=== PATIENT | male | born 1985 | race Caucasian/White ===

== ENCOUNTER 2020-06-13 14:20 | Emergency (ER) | payer OTHER ==
[2020-06-13 14:32] VITALS: BP 121/80; PULSE 74; RESP 16; TEMP 98.4
--- NOTE | 2020-06-13 14:42 | ED ---
Recheck HPI - General Chief Complaint: Recheck/Abnormal Lab/Rx Stated Complaint: COVID test Time Seen by Provider: 06/13/20 14:35 Source: patient Mode of arrival: ambulatory Limitations: no limitations - History of Present Illness Initial Comments: 34-year-old male presenting today for chief complaint of dry cough exposure to cold. Patient states he's had a dry cough for the past 2 days. Patient denies a chest pain shortness of breath nausea vomiting fevers body aches or additional complaints. Patient appears well nontoxic distress. No further complaints vital signs within physical limits he does not endorse any past medical history. - Related Data Allergies Allergy/AdvReac Type Severity Reaction Status Date / Time No Known Allergies Allergy Verified 06/13/20 14:32 Review of Systems ROS Statement: Those systems with pertinent positive or pertinent negative responses have been documented in the HPI. ROS Other: All systems not noted in ROS Statement are negative. Past Medical History Past Medical History: No Reported History History of Any Multi-Drug Resistant Organisms: None Reported Past Surgical History: No Surgical Hx Reported Past Psychological History: No Psychological Hx Reported Smoking Status: Never smoker Past Alcohol Use History: Occasional Past Drug Use History: None Reported General Exam - General Exam Comments Initial Comments: General: The patient is awake and alert, in no distress, and does not appear acutely ill. Eye: Pupils are equal, round and reactive to light, extra-ocular movements are intact. No nystagmus. There is normal conjunctiva bilaterally. No signs of icterus. Ears, nose, mouth and throat: There are moist mucous membranes and no oral lesions. Oropharynx nonerythematous uvula midline. Neck: The neck is supple, there is no tenderness or JVD. Cardiovascular: There is a regular rate and rhythm. No murmur, rub or gallop is appreciated. Respiratory: Lungs are clear to auscultation, respirations are non-labored, breath sounds are equal. No wheezes, stridor, rales, or rhonchi. Musculoskeletal: Normal ROM, no tenderness. Strength 5/5. Sensation intact. Pulses equal bilaterally 2+. Neurological: A&O x 3. CN II-XII intact, There are no obvious motor or sensory deficits. Coordination appears grossly intact. Speech is normal. Skin: Skin is warm and dry and no rashes or lesions are noted. Psychiatric: Cooperative, appropriate mood & affect, normal judgment. Limitations: no limitations Course Vital Signs 06/13/20 14:28 Temperature 98.4 F Pulse Rate 74 Respiratory 16 Rate Blood Pressure 121/80 O2 Sat by Pulse 98 Oximetry Medical Decision Making - Medical Decision Making Nontoxic-appearing 34-year-old male presenting for cc of cough, covid exposure. lungs clear. oxygenating well on RA, no dyspnea or chest pain. Patient tested. will be called with results. pt discharged with symptomatic treatment instruction, quarantine protocol discussed as well as return parameters. Disposition Clinical Impression: Cough, Exposure to COVID-19 virus Disposition: HOME SELF-CARE Condition: Good Instructions (If sedation given, give patient instructions): Upper Respiratory Infection (ED) Additional Instructions: Please use medication as discussed. Please follow-up with family doctor in the next 2 days, quarantine for the next 10-14 days.. Please return to emergency room if the symptoms increase or worsen or for any other concerns. Is patient prescribed a controlled substance at d/c from ED?: No Referrals: [facility],Clinic [Primary Care Provider] - 1-2 days Time of Disposition: 14:42
== END 2020-06-13 14:58 | disposition home or self-care (01) ==
LOC: EC 14:20
DX: R05 Cough (principal); Z20.822 Contact with and (suspected) exposure to COVID-19
CPT/HCPCS: 87635; 99283

== ENCOUNTER 2020-07-28 13:58 | Emergency (ER) | payer OTHER ==
[2020-07-28 14:26] VITALS: BP 133/54; PULSE 96; TEMP 98.4
[2020-07-28] MEDS ORDERED: guaiFENesin-DM 600/30MG 1 EACH TAB.ER.12H PO STA (14:33)
[2020-07-28 14:46] VITALS: RESP 16
--- NOTE | 2020-07-28 15:00 | XR ---
EXAMINATION TYPE: XR chest 1V DATE OF EXAM: 07/28/2020 COMPARISON: NONE HISTORY: Cough TECHNIQUE: Single view FINDINGS: Heart and mediastinum are normal. Lungs are clear. Diaphragm is normal. Bony thorax appears normal. IMPRESSION: Normal chest. Normal heart.
--- NOTE | 2020-07-28 15:42 | ED ---
URI HPI - General Chief Complaint: Upper Respiratory Infection Stated Complaint: Covid Test Time Seen by Provider: 07/28/20 14:26 Source: patient Mode of arrival: ambulatory Limitations: no limitations - History of Present Illness Initial Comments: 34-year-old male patient presents to the emergency department today for evaluation of dry cough for the last 2-3 days. Patient states that his been more persistent. He is concerned he may have COVID-19. He denies any fever or chills. Denies nasal congestion or drainage. Denies any shortness of breath or chest pain. Denies rash. - Related Data Previous Rx's Medication Instructions Recorded Albuterol Sulfate [Proair Hfa] 1 - 2 puff INHALATION Q6HR PRN #1 07/28/20 inhaler guaiFENesin-DM 600/30MG [Mucinex 2 each PO Q12HR PRN #20 tab.er.12h 07/28/20 Dm] Allergies Allergy/AdvReac Type Severity Reaction Status Date / Time No Known Allergies Allergy Verified 07/28/20 14:22 Review of Systems ROS Statement: Those systems with pertinent positive or pertinent negative responses have been documented in the HPI. ROS Other: All systems not noted in ROS Statement are negative. Past Medical History Past Medical History: No Reported History Additional Past Medical History / Comment(s): back pain History of Any Multi-Drug Resistant Organisms: None Reported Past Surgical History: No Surgical Hx Reported Past Psychological History: No Psychological Hx Reported Smoking Status: Former smoker Past Alcohol Use History: Occasional Past Drug Use History: None Reported General Exam Limitations: no limitations General appearance: alert, in no apparent distress, other (This is a well- developed, well-nourished adult male patient in no acute distress. Vital signs upon presentation are temperature 98.4F, pulse 96, respirations 18, blood pressure 133/54, pulse ox 97% on room air.) ENT exam: Present: normal exam, normal oropharynx Respiratory exam: Present: normal lung sounds bilaterally. Absent: respiratory distress, wheezes, rales, rhonchi, stridor Cardiovascular Exam: Present: regular rate, normal rhythm, normal heart sounds. Absent: systolic murmur, diastolic murmur, rubs, gallop, clicks Neurological exam: Present: alert, oriented X3, CN II-XII intact Psychiatric exam: Present: normal affect, normal mood Skin exam: Present: warm, dry, intact, normal color. Absent: rash Course Vital Signs 07/28/20 07/28/20 07/28/20 14:22 14:45 15:28 Temperature 98.4 F 98.4 F Pulse Rate 96 96 Respiratory 18 16 16 Rate Blood Pressure 133/54 133/54 O2 Sat by Pulse 97 97 Oximetry Medical Decision Making - Medical Decision Making 34-year-old male patient presented to the emergency department today for evaluation of dry cough for the last 3 days. Physical examination is unremarkable. Lungs are clear to auscultation with good air movement. Vital signs are within normal ranges, normal oxygen saturation. He is afebrile. Chest x-ray is negative. He tested negative for COVID-19. He is given prescription for Mucinex and Pro Air. Instructed to follow-up with his primary care physician for recheck in 1-2 days. Return parameters were discussed in detail. He verbalizes understanding and agrees with this plan. Case discussed with my attending Dr. Perez. - Lab Data Lab Results 07/28/20 Range/Units 14:43 Coronavirus (PCR) Not Detected (Not Detectd) - Radiology Data Radiology results: report reviewed, image reviewed One view x-ray of the chest is obtained. Report was reviewed in its entirety. Impression by Dr. Barone shows normal chest. Normal heart. Disposition Clinical Impression: Cough Disposition: HOME SELF-CARE Condition: Good Instructions (If sedation given, give patient instructions): Upper Respiratory Infection (ED), Acute Cough (ED) Additional Instructions: Take medications as directed. Follow-up with the primary care physician for recheck in 1-2 days. Return to the emergency department for any new, worsening, or concerning symptoms. Prescriptions: guaiFENesin-DM 600/30MG [Mucinex Dm] 2 each PO Q12HR PRN #20 tab.er.12h PRN Reason: Cough Albuterol Sulfate [Proair Hfa] 1 - 2 puff INHALATION Q6HR PRN #1 inhaler PRN Reason: Shortness Of Breath Is patient prescribed a controlled substance at d/c from ED?: No Referrals: [facility],Clinic [Primary Care Provider] - 1-2 days Time of Disposition: 15:41
== END 2020-07-28 15:45 | disposition home or self-care (01) ==
LOC: EC 13:58
DX: R05 Cough (principal); Z87.891 Personal history of nicotine dependence
CPT/HCPCS: 71045; 87635; 99283

== ENCOUNTER 2020-09-15 11:11 | Emergency (ER) | payer OTHER ==
[2020-09-15 11:21] VITALS: TEMP 97.9
[2020-09-15] MEDS ORDERED: KETOROLAC 15 MG/ML 1 ML VIAL IVP STA (11:27)
[2020-09-15] MEDS ORDERED: SODIUM CHLORIDE 0.9% 1,000 ML IV STA (11:27)
--- NOTE | 2020-09-15 11:35 | ED ---
Abdominal Pain HPI - General Chief Complaint: Abdominal Pain Stated Complaint: abd pain Time Seen by Provider: 09/15/20 11:19 Source: patient Mode of arrival: wheelchair Limitations: no limitations - History of Present Illness Initial Comments: Patient is a 34-year-old male presenting to the emergency Department with complaints of left-sided abdominal pain that started suddenly about 2 hours prior to arrival. He describes the pain as very sharp, severe radiating from the left low back towards the left side of the abdomen, down towards the left groin. He denies history of kidney stones. He denies any nausea or vomiting, no fever or chills. He denies any history of abdominal surgeries. Denies any chest pain or shortness of breath. He currently rates the pain 11/24. He has no further complaints. His vital signs are stable upon arrival. - Related Data Previous Rx's Medication Instructions Recorded Albuterol Sulfate [Proair Hfa] 1 - 2 puff INHALATION Q6HR PRN #1 07/28/20 inhaler guaiFENesin-DM 600/30MG [Mucinex 2 each PO Q12HR PRN #20 tab.er.12h 07/28/20 Dm] Ketorolac [Toradol] 10 mg PO Q8HR #10 tab 09/15/20 Ondansetron Odt [Zofran Odt] 4 mg PO Q8HR PRN #10 tab 09/15/20 Tamsulosin [Flomax] 0.4 mg PO DAILY #7 cap 09/15/20 Allergies Allergy/AdvReac Type Severity Reaction Status Date / Time No Known Allergies Allergy Verified 09/15/20 11:21 Review of Systems ROS Statement: Those systems with pertinent positive or pertinent negative responses have been documented in the HPI. ROS Other: All systems not noted in ROS Statement are negative. Past Medical History Past Medical History: No Reported History Additional Past Medical History / Comment(s): back pain, IBS History of Any Multi-Drug Resistant Organisms: None Reported Past Surgical History: No Surgical Hx Reported Past Psychological History: No Psychological Hx Reported Smoking Status: Former smoker Past Alcohol Use History: Occasional Past Drug Use History: Marijuana General Exam - General Exam Comments Initial Comments: GENERAL: Patient is well-developed and well-nourished. Patient is nontoxic and in moderate distress, if reticulocyte. HEAD: Atraumatic, normocephalic. EYES: Pupils equal round and reactive to light, extraocular movements intact, sclera anicteric, conjunctiva are normal. Eyelids were unremarkable. ENT: TMs normal, nares patent, oropharynx clear without exudates. Moist mucous membranes. NECK: Normal range of motion, supple without lymphadenopathy or JVD. LUNGS: Unlabored respirations. Breath sounds clear to auscultation bilaterally and equal. No wheezes rales or rhonchi. HEART: Regular rate and rhythm without murmurs, rubs or gallops. ABDOMEN: Soft, tender to palpation in the left side of the abdomen., normoactive bowel sounds. No guarding, no rebound. No masses appreciated. : Deferred MUSCULOSKELETAL: Normal extremities with adequate strength and normal range of motion, no pitting or edema. No clubbing or cyanosis. NEUROLOGICAL: Patient is alert and oriented x 3. Motor and sensory are also intact. Cranial nerves II through XII grossly intact. Symmetrical smile. Normal speech, normal gait. PSYCH: Normal mood, normal affect. SKIN: Warm, Dry, normal turgor, no rashes or lesions noted. Limitations: no limitations Course Vital Signs 09/15/20 09/15/20 11:19 12:41 Temperature 97.9 F Pulse Rate 76 74 Respiratory 18 16 Rate Blood Pressure 156/79 101/76 O2 Sat by Pulse 98 99 Oximetry Medical Decision Making - Medical Decision Making Patient is a 34-year-old male here for left flank pain 2 hours. His vitals are stable, no history of kidney stones. Labs are stable, normal white count. Urine shows large amount of blood. CT of the abdomen shows 3 small nonobstructing left renal calcifications. No hydronephrosis. Patient was given fluids and some Toradol, reports improvement of symptoms. I discussed with patient this is most likely kidney stones, renal colic. I will give him urology follow-up. I will send him home with some Flomax, Toradol, Zofran for any additional symptoms. He is stable for discharge. He is in agreement with this plan of care. Return parameters were discussed with the patient and he verbalized understanding. Case discussed Dr. Albert. - Lab Data Result diagrams: 09/15/20 11:33 09/15/20 11:33 Lab Results 09/15/20 09/15/20 09/15/20 Range/Units 11:33 11:33 11:33 WBC 9.7 (3.8-10.6) k/uL RBC 5.07 (4.30-5.90) m/uL Hgb 16.2 (13.0-17.5) gm/dL Hct 46.6 (39.0-53.0) % MCV 91.8 (80.0-100.0) fL MCH 31.9 (25.0-35.0) pg MCHC 34.8 (31.0-37.0) g/dL RDW 12.0 (11.5-15.5) % Plt Count 193 (150-450) k/uL MPV 8.1 Neutrophils % 60 % Lymphocytes % 30 % Monocytes % 5 % Eosinophils % 3 % Basophils % 1 % Neutrophils # 5.8 (1.3-7.7) k/uL Lymphocytes # 3.0 (1.0-4.8) k/uL Monocytes # 0.5 (0-1.0) k/uL Eosinophils # 0.3 (0-0.7) k/uL Basophils # 0.1 (0-0.2) k/uL Sodium 138 (137-145) mmol/L Potassium 4.4 (3.5-5.1) mmol/L Chloride 107 (98-107) mmol/L Carbon Dioxide 23 (22-30) mmol/L Anion Gap 8 mmol/L BUN 11 (9-20) mg/dL Creatinine 0.84 (0.66-1.25) mg/dL Est GFR (CKD-EPI)AfAm >90 (>60 ml/min/1.73 sqM) Est GFR (CKD-EPI)NonAf >90 (>60 ml/min/1.73 sqM) Glucose 104 H (74-99) mg/dL Calcium 9.5 (8.4-10.2) mg/dL Total Bilirubin 1.6 H (0.2-1.3) mg/dL AST 30 (17-59) U/L ALT 33 (4-49) U/L Alkaline Phosphatase 79 (38-126) U/L Total Protein 7.7 (6.3-8.2) g/dL Albumin 4.5 (3.5-5.0) g/dL Lipase 48 (23-300) U/L Urine Color Yellow Urine Appearance Clear (Clear) Urine pH 5.5 (5.0-8.0) Ur Specific [place] 1.020 (1.001-1.035) Urine Protein Negative (Negative) Urine Glucose (UA) Negative (Negative) Urine Ketones Negative (Negative) Urine Blood Large H (Negative) Urine Nitrite Negative (Negative) Urine Bilirubin Negative (Negative) Urine Urobilinogen <2.0 (<2.0) mg/dL Ur Leukocyte Esterase Negative (Negative) Urine RBC 83 H (0-5) /hpf Urine WBC 2 (0-5) /hpf Urine Bacteria Rare H (None) /hpf Urine Mucus Occasional H (None) /hpf Disposition Clinical Impression: Left flank pain, Renal colic on left side Disposition: HOME SELF-CARE Condition: Stable Instructions (If sedation given, give patient instructions): Kidney Stones (ED) Additional Instructions: Please return to the Emergency Department if symptoms worsen or any other concerns. May take Flomax, Toradol, Zofran for symptoms. Follow up with urology as discussed. Prescriptions: Tamsulosin [Flomax] 0.4 mg PO DAILY #7 cap Ketorolac [Toradol] 10 mg PO Q8HR #10 tab Ondansetron Odt [Zofran Odt] 4 mg PO Q8HR PRN #10 tab PRN Reason: Nausea Is patient prescribed a controlled substance at d/c from ED?: No Referrals: [facility],Clinic [Primary Care Provider] - 1-2 days Time of Disposition: 13:13
[2020-09-15 11:39] LABS: Basophils # (A) 0.1 k/uL (0-0.2); Basophils % (A) 1 %; Eosinophils # (A) 0.3 k/uL (0-0.7); Eosinophils % (A) 3 %; HCT 46.6 % (39.0-53.0); HGB 16.2 gm/dL (13.0-17.5); Lymphocytes % (A) 30 %; MCH 31.9 pg (25.0-35.0); MCHC 34.8 g/dL (31.0-37.0); MCV 91.8 fL (80.0-100.0); Mean Platelet Volume 8.1; Monocytes # (A) 0.5 k/uL (0-1.0); Monocytes % (A) 5 %; Neutrophils # (A) 5.8 k/uL (1.3-7.7); Neutrophils % (A) 60 %; Platelet Count 193 k/uL (150-450); RBC 5.07 m/uL (4.30-5.90); WBC 9.7 k/uL (3.8-10.6)
[2020-09-15 11:48] LABS: ALT 33 U/L (4-49); AST 30 U/L (17-59); African American GFR (CKD) >90 (>60 ml/min/1.73 sqM); Albumin 4.5 g/dL (3.5-5.0); Alkaline Phosphatase 79 U/L (38-126); Anion Gap 8 mmol/L; Blood Urea Nitrogen 11 mg/dL (9-20); Calcium 9.5 mg/dL (8.4-10.2); Carbon Dioxide 23 mmol/L (22-30); Chloride 107 mmol/L (98-107); Glucose 104 mg/dL (74-99); Lipase 48 U/L (23-300); Non-African American GFR(CKD) >90 (>60 ml/min/1.73 sqM); Sodium 138 mmol/L (137-145); Total Bilirubin 1.6 mg/dL (0.2-1.3); Total Protein 7.7 g/dL (6.3-8.2)
[2020-09-15 11:50] LABS: Potassium 4.4 mmol/L (3.5-5.1)
[2020-09-15 12:42] VITALS: BP 101/76; PULSE 74; RESP 16
--- NOTE | 2020-09-15 12:54 | CT ---
EXAMINATION TYPE: CT abdomen pelvis wo con DATE OF EXAM: 09/15/2020 COMPARISON: None HISTORY: Lt flank pain CT DLP: 657.8 mGycm Automated exposure control for dose reduction was used. TECHNIQUE: Helical acquisition of images was performed from the lung bases through the pelvis. FINDINGS: The lung bases are clear. The gallbladder is normal and there is no biliary ductal dilatation. Grossly the liver, pancreas, spleen and adrenal glands are normal without evidence of organomegaly. There are 3 nonobstructing left renal calcifications the largest of which measures approximately 3.5 mm. There are no ureteral calcifications or bladder calcifications. There are no calcifications in th e right kidney. There is no retroperitoneal adenopathy or hemorrhage in the caliber of the abdominal aorta is normal. The bowel loops are unremarkable without evidence of obstruction. No inflammatory changes are identif ied in the mesentery. There is no free intraperitoneal air or fluid. There is no pelvic mass, free fluid, abscess or adenopathy. The osseous structures and soft tissues are unremarkable. IMPRESSION: 3 small nonobstructing left renal calcifications with no other significant abnormality seen. There is no hydronephrosis or ureteral calcification.
[2020-09-15 13:11] LABS: Appearance,Urine Clear (Clear); Bacteria,Urine Rare /hpf; Bilirubin,Urine Negative (Negative); Blood,Urine Large (Negative); Color,Urine Yellow; Glucose,Urine (UA) Negative (Negative); Ketones,Urine Negative (Negative); Leukocyte Esterase,Urine Negative (Negative); Mucus,Urine Occasional /hpf; Nitrite,Urine Negative (Negative); PH, Urine 5.5 (5.0-8.0); Protein,Urine Negative (Negative); RBC,Urine 83 /hpf (0-5); Urobilinogen,Urine <2.0 mg/dL (<2.0); WBC,Urine 2 /hpf (0-5)
== END 2020-09-15 13:31 | disposition home or self-care (01) ==
LOC: EC 11:11
DX: N23 Unspecified renal colic (principal); E11.9 Type 2 diabetes mellitus without complications; F12.90 Cannabis use, unspecified, uncomplicated; Z87.891 Personal history of nicotine dependence; Z79.84 Long term (current) use of oral hypoglycemic drugs
CPT/HCPCS: 36415; 80053; 83690; 85025; 81001; 74176; 99284; 96374; J1885

== ENCOUNTER 2020-10-19 13:22 | Emergency (ER) | payer OTHER ==
[2020-10-19 14:17] VITALS: TEMP 97.9
--- NOTE | 2020-10-19 15:09 | ED ---
URI HPI - General Chief Complaint: Upper Respiratory Infection Stated Complaint: sore throat and congestion Time Seen by Provider: 10/19/20 14:23 Source: patient Mode of arrival: ambulatory Limitations: no limitations - History of Present Illness Initial Comments: Patient is a 35-year-old male presenting to the emergency Department with complaints of a mild cough, congestion and sore throat that started yesterday. He states he has a to go to tomorrow and really wants to make sure he is not contagious. He denies any fevers or chills, no chest pain or shortness of breath. He denies history of asthma or COPD. He denies any nausea or vomiting or diarrhea. He denies any pain anywhere. He has no further complaints at this time. Upon arrival to the ER, his vitals are stable. - Related Data Home Medications Medication Instructions Recorded Confirmed No Known Home Medications 10/19/20 10/19/20 Allergies Allergy/AdvReac Type Severity Reaction Status Date / Time No Known Allergies Allergy Verified 10/19/20 16:14 Review of Systems ROS Statement: Those systems with pertinent positive or pertinent negative responses have been documented in the HPI. ROS Other: All systems not noted in ROS Statement are negative. Past Medical History Past Medical History: No Reported History Additional Past Medical History / Comment(s): back pain, IBS History of Any Multi-Drug Resistant Organisms: None Reported Past Surgical History: No Surgical Hx Reported Past Psychological History: No Psychological Hx Reported Smoking Status: Former smoker Past Alcohol Use History: Occasional Past Drug Use History: Marijuana General Exam - General Exam Comments Initial Comments: GENERAL: Patient is well-developed and well-nourished. Patient is nontoxic and in no acute distress. HEAD: Atraumatic, normocephalic. EYES: Pupils equal round and reactive to light, extraocular movements intact, sclera anicteric, conjunctiva are normal. Eyelids were unremarkable. ENT: TMs normal, nares patent, oropharynx clear without exudates. Moist mucous membranes. NECK: Normal range of motion, supple without lymphadenopathy or JVD. LUNGS: Unlabored respirations. Breath sounds clear to auscultation bilaterally and equal. No wheezes rales or rhonchi. HEART: Regular rate and rhythm without murmurs, rubs or gallops. ABDOMEN: Soft, nontender, normoactive bowel sounds. No guarding, no rebound. No masses appreciated. : Deferred MUSCULOSKELETAL: Normal extremities with adequate strength and normal range of motion, no pitting or edema. No clubbing or cyanosis. NEUROLOGICAL: Patient is alert and oriented x 3. Motor and sensory are also intact. Cranial nerves II through XII grossly intact. Symmetrical smile. Normal speech, normal gait. PSYCH: Normal mood, normal affect. SKIN: Warm, Dry, normal turgor, no rashes or lesions noted. Limitations: no limitations Course Vital Signs 10/19/20 10/19/20 14:15 14:16 Temperature 97.9 F Pulse Rate 90 80 Respiratory 20 18 Rate Blood Pressure 107/78 130/85 O2 Sat by Pulse 94 L 98 Oximetry Medical Decision Making - Medical Decision Making Patient is a 35-year-old male here with complaints of a cough, congestion and a sore throat that started yesterday. His vital signs are stable, the exam is unremarkable. Covid test is negative, chest x-ray is unremarkable. I discussed the patient is most likely viral in nature. He is stable for discharge. In follow-up this PCP. He is in agreement this plan of care. Case discussed with Dr. Albert. - Lab Data Lab Results 10/19/20 Range/Units 14:55 Coronavirus (PCR) Not Detected (Not Detectd) Disposition Clinical Impression: Viral upper respiratory illness Disposition: HOME SELF-CARE Condition: Stable Instructions (If sedation given, give patient instructions): Upper Respiratory Infection (ED) Additional Instructions: Please return to the Emergency Department if symptoms worsen or any other concerns. Recommended [id number] medications for your cough. Tylenol or Motrin as needed. Follow up with your PCP. Is patient prescribed a controlled substance at d/c from ED?: No Referrals: [facility],Clinic [Primary Care Provider] - 1-2 days Time of Disposition: 16:38
[2020-10-19 15:20] VITALS: BP 130/85; PULSE 80; RESP 18
--- NOTE | 2020-10-19 16:34 | XR ---
EXAMINATION TYPE: XR chest 2V DATE OF EXAM: 10/19/2020 COMPARISON: Chest x-ray July 28, 2020 HISTORY: Cough. TECHNIQUE: Frontal and lateral views of the chest are obtained. FINDINGS: There is no focal air space opacity, pleural effusion, or pneumothorax seen. The cardiac silhouette size is within normal limits. The osseous structures are intact. IMPRESSION: No acute pulmonary process.
== END 2020-10-19 17:01 | disposition home or self-care (01) ==
LOC: EC 13:22
DX: J06.9 Acute upper respiratory infection, unspecified (principal); Z87.891 Personal history of nicotine dependence; F12.90 Cannabis use, unspecified, uncomplicated
CPT/HCPCS: 71046; 87635; 99283

== ENCOUNTER → 2021-05-07 | Outpatient (CLI) | payer OTHER ==
--- NOTE | 2021-05-07 11:09 | MR ---
EXAMINATION TYPE: MR lumbar spine wo con DATE OF EXAM: 05/07/2021 COMPARISON: NONE HISTORY: Low back pain TECHNIQUE: T1 and T2 axial and sagittal images of the lumbar spine are submitted. FINDINGS: There is no abnormal signal seen within the visualized spinal cord or paraspinal soft tissu es. Vertebral body hemangioma T12. Simple appearing right renal cyst noted. At L1-2 there is no evidence of degenerative disc disease, disc herniation, or canal stenosis. No for aminal encroachment. At L2-3 there is no evidence of degenerative disc disease, disc herniation, or canal stenosis. No for aminal encroachment At L3-4 there is no evidence of degenerative disc disease, disc herniation, or canal stenosis. No for aminal encroachment At L4-5 there is a degenerative disc disease with broad-based disc protrusion result in moderate effa cement of thecal sac. Mild facet arthropathy noted with mild central stenosis and bilateral foraminal encroachment. At L5-S1 there is degenerative disc disease with broad-based disc protrusion or herniation. Mild bila teral foraminal encroachment and mild central stenosis. Facet arthropathy noted. IMPRESSION: 1. Broad-based central disc protrusions L4-5 and L5-S1 results in significant thecal sac compression, canal stenosis and bilateral foraminal encroachment.
== END | disposition home or self-care (01) ==
LOC: RADMRIMAIN 09:11
PROVIDERS: ATTEND Physician Assistant Medical
DX: M48.07 Spinal stenosis, lumbosacral region (principal); M51.37 Other intervertebral disc degeneration, lumbosacral region
CPT/HCPCS: 72148

== ENCOUNTER 2021-06-01 17:29 | Emergency (ER) | payer OTHER ==
[2021-06-01 17:53] VITALS: BP 111/77; PULSE 64; TEMP 98.8
[2021-06-01 18:03] VITALS: RESP 16
--- NOTE | 2021-06-01 20:17 | ED ---
General Adult HPI - General Chief complaint: Recheck/Abnormal Lab/Rx Stated complaint: Covid+(05/25/21),wants covid screening Time Seen by Provider: 06/01/21 19:54 Source: patient, RN notes reviewed Mode of arrival: ambulatory Limitations: no limitations - History of Present Illness Initial comments: 35-year-old male presents to the emergency department requesting a Covid test. Patient states he had Covid last week and is here for a retest. States his symptoms have resolved and he currently denies fever, chills, headache, chest pain, cough, shortness of breath, difficulty breathing, abdominal pain, nausea, vomiting, diarrhea, or dysuria. - Related Data Home Medications Medication Instructions Recorded Confirmed No Known Home Medications 10/19/20 10/19/20 Allergies Allergy/AdvReac Type Severity Reaction Status Date / Time No Known Allergies Allergy Verified 06/01/21 17:53 Review of Systems ROS Statement: Those systems with pertinent positive or pertinent negative responses have been documented in the HPI. ROS Other: All systems not noted in ROS Statement are negative. Past Medical History Past Medical History: No Reported History Additional Past Medical History / Comment(s): back pain, IBS, Degen disc disease, bilateral knee issues History of Any Multi-Drug Resistant Organisms: None Reported Past Surgical History: No Surgical Hx Reported Past Psychological History: No Psychological Hx Reported Smoking Status: Former smoker Past Alcohol Use History: Occasional Past Drug Use History: Marijuana General Exam Limitations: no limitations (Developed, well-nourished male in no acute distress. Initial temperature 98.8, pulse 64, respirations 20, blood pressure 111/77, pulse ox 98% on room air.) General appearance: alert, in no apparent distress ENT exam: Present: normal exam, normal oropharynx, mucous membranes moist Respiratory exam: Present: normal lung sounds bilaterally. Absent: respiratory distress, wheezes, rales, rhonchi, stridor Cardiovascular Exam: Present: regular rate, normal rhythm, normal heart sounds. Absent: systolic murmur, diastolic murmur, rubs, gallop, clicks GI/Abdominal exam: Present: soft, normal bowel sounds. Absent: distended, tenderness, guarding, rebound, rigid Neurological exam: Present: alert, oriented X3, CN II-XII intact Psychiatric exam: Present: normal affect, normal mood Skin exam: Present: warm, dry, intact, normal color. Absent: rash Course Vital Signs 06/01/21 06/01/21 17:51 18:02 Temperature 98.8 F Pulse Rate 64 Respiratory 20 16 Rate Blood Pressure 111/77 O2 Sat by Pulse 98 Oximetry Medical Decision Making - Medical Decision Making 35-year-old male with a recent COVID-19 illness presents to the emergency department requesting a repeat Covid test. Physical exam findings are unremarkable. Vital signs are stable. Patient is instructed to continue his period of isolation for the full 10 days. He will be discharged home to follow- up with his PCP as needed. Return parameters discussed in detail. Patient verbalizes understanding and agrees with this plan. This patient's care was discussed with my attending Dr. Perez. - Lab Data Lab Results 06/01/21 Range/Units 17:54 Coronavirus (PCR) Detected A (Not Detectd) Disposition Clinical Impression: Lab test positive for detection of COVID-19 virus Disposition: HOME SELF-CARE Condition: Stable Instructions (If sedation given, give patient instructions): Normal Exam (ED) Additional Instructions: Follow up with your PCP for a recheck. Consider retesting day 10-14 from symptom onset. Return to the emergency department with any new, worsening, or concerning symptoms. Is patient prescribed a controlled substance at d/c from ED?: No Referrals: [facility],Clinic [Primary Care Provider] - 1-2 days Time of Disposition: 20:20
== END 2021-06-01 20:26 | disposition home or self-care (01) ==
LOC: EC 17:29
DX: U07.1 COVID-19 (principal); Z87.891 Personal history of nicotine dependence
CPT/HCPCS: 87635; 99283

== ENCOUNTER 2021-11-30 20:34 | Emergency (ER) | payer OTHER ==
[2021-11-30 21:22] VITALS: BP 110/75; PULSE 84; RESP 20; TEMP 98.2
--- NOTE | 2021-11-30 23:03 | ED ---
General Adult HPI - General Chief complaint: Recheck/Abnormal Lab/Rx Stated complaint: Covid Test Time Seen by Provider: 11/30/21 22:50 Source: patient, family, RN notes reviewed, old records reviewed Mode of arrival: ambulatory Limitations: no limitations - History of Present Illness Initial comments: 36-year-old male presents to the emergency room for coronavirus testing to go to [place]. No sick contacts. Vital signs are stable. Severity scale (1-10): 0 Associated Symptoms: denies other symptoms - Related Data Home Medications Medication Instructions Recorded Confirmed No Known Home Medications 10/19/20 10/19/20 Allergies Allergy/AdvReac Type Severity Reaction Status Date / Time No Known Allergies Allergy Verified 11/30/21 21:22 Review of Systems ROS Statement: Those systems with pertinent positive or pertinent negative responses have been documented in the HPI. ROS Other: All systems not noted in ROS Statement are negative. Past Medical History Past Medical History: No Reported History Additional Past Medical History / Comment(s): back pain, IBS, Degen disc disease, bilateral knee issues History of Any Multi-Drug Resistant Organisms: None Reported Past Surgical History: No Surgical Hx Reported Past Psychological History: No Psychological Hx Reported Smoking Status: Former smoker Past Alcohol Use History: Occasional Past Drug Use History: Marijuana General Exam Limitations: no limitations General appearance: alert, in no apparent distress Head exam: Present: atraumatic Eye exam: Present: normal appearance. Absent: scleral icterus, conjunctival injection ENT exam: Present: normal exam, normal oropharynx, mucous membranes moist Neck exam: Present: normal inspection Respiratory exam: Present: normal lung sounds bilaterally. Absent: respiratory distress, accessory muscle use Cardiovascular Exam: Present: regular rate Neurological exam: Present: alert, oriented X3, normal gait Psychiatric exam: Present: normal affect, normal mood Skin exam: Present: warm, dry, normal color. Absent: cyanosis, diaphoretic, petechiae, pallor Course Vital Signs 11/30/21 21:20 Temperature 98.2 F Pulse Rate 84 Respiratory 20 Rate Blood Pressure 110/75 O2 Sat by Pulse 96 Oximetry Medical Decision Making - Medical Decision Making Coronavirus office negative. Patient is asymptomatic. No sick contacts. Vital signs are stable. Directed to return to the emergency room with any new or concerning symptoms. - Lab Data Lab Results 11/30/21 Range/Units 21:26 Coronavirus (PCR) Not Detected (Not Detectd) Disposition Clinical Impression: Encounter for laboratory testing for COVID-19 virus Disposition: HOME SELF-CARE Condition: Good Additional Instructions: Return to the emergency room with any new or concerning symptoms. Is patient prescribed a controlled substance at d/c from ED?: No Referrals: [facility],Clinic [Primary Care Provider] - 1-2 days Time of Disposition: 23:03
== END 2021-11-30 23:10 | disposition home or self-care (01) ==
LOC: EC 20:34
DX: Z20.822 Contact with and (suspected) exposure to COVID-19 (principal); Z87.891 Personal history of nicotine dependence
CPT/HCPCS: 87635; 99283

== ENCOUNTER → 2022-01-21 | Outpatient (CLI) | payer OTHER ==
--- NOTE | 2022-01-24 10:04 | MR ---
EXAMINATION TYPE: MR lumbar spine wo con DATE OF EXAM: 01/23/2022 COMPARISON: 05/07/2021 HISTORY: Sciatica TECHNIQUE: Multiplanar, multisequence images of the lumbar spine were acquired. FINDINGS: L5-S1: Broad-based disc bulge is present. This is greater into the right paracentral region. Displacement of the bilateral exiting nerve roots is evident. No AP spinal canal stenosis is present. Mild anterior thecal sac compression is present. Right neural foramen is patent. Left neural foramen is mild narrowing. Disc desiccation is present. L4-L5: Broad-based disc bulge is present with minimal anterior thecal sac contact. No AP spinal canal stenosis present. Neural foramen are patent. Disc desiccation is present. L3-L4: No significant disc bulge or disc herniation. No spinal canal stenosis. No foraminal stenosis. Neural foramen are patent.. L2-L3: No significant disc bulge or disc herniation. No spinal canal stenosis. No foraminal stenosis. Neural foramen are patent.. L1-L2: No significant disc bulge or disc herniation. No spinal canal stenosis. No foraminal stenosis. Neural foramen are patent.. T12-L1: No significant disc bulge or disc herniation. No spinal canal stenosis. No foraminal stenosis. Neural foramen are patent.. Comparison: Findings appear similar to comparison. IMPRESSION: 1. Broad-based disc bulging and disc herniation L5-S1 has displacement of the exiting nerve roots. No AP spinal canal stenosis present, some mild left foraminal narrowing is present.. 2. Broad-based disc bulge with minimal anterior thecal sac contact. No spinal canal stenosis. MTDD
== END | disposition home or self-care (01) ==
LOC: RADMRIMAIN 07:49
PROVIDERS: ATTEND Neurological Surgery
DX: M51.27 Other intervertebral disc displacement, lumbosacral region (principal); M99.74 Connective tissue and disc stenosis of intervertebral foramina of sacral region
CPT/HCPCS: 72148

== ENCOUNTER 2022-04-24 18:20 | Emergency (ER) | payer OTHER ==
[2022-04-24 18:32] VITALS: RESP 18
--- NOTE | 2022-04-24 18:39 | ED ---
General Adult HPI - General Chief complaint: Neuro Symptoms/Deficit Stated complaint: CVA Time Seen by Provider: 04/24/22 18:23 Source: patient, EMS Mode of arrival: EMS Limitations: no limitations - History of Present Illness Initial comments: This patient is 36-year-old man who arrives here to have evaluation for a number of symptoms that it developed over the past 2-3 days. The patient states that he initially started feeling lightheaded, somewhat off-balance. He states that sometimes when he was walking he felt like he would fall. The patient's speech was different this afternoon, starting approximately 1.5 hours ago, he was stuttering and noted that his speech had slowed. The patient is still able to express what he would like to but it is taking longer. There is no weakness or numbness of the extremities. No headache. No change in sensory function. -: days(s) Severity scale (1-10): 0 Consistency: constant Improves with: none Worsens with: none Associated Symptoms: denies other symptoms Treatments Prior to Arrival: none - Related Data Home Medications Medication Instructions Recorded Confirmed No Known Home Medications 10/19/20 10/19/20 Allergies Allergy/AdvReac Type Severity Reaction Status Date / Time No Known Allergies Allergy Verified 04/24/22 18:32 Review of Systems ROS Statement: Those systems with pertinent positive or pertinent negative responses have been documented in the HPI. ROS Other: All systems not noted in ROS Statement are negative. Constitutional: Denies: fever, chills Eyes: Denies: eye pain, vision change Respiratory: Denies: cough, dyspnea Cardiovascular: Denies: chest pain, palpitations, edema, syncope Gastrointestinal: Denies: abdominal pain, vomiting, diarrhea, melena, hematochezia Genitourinary: Denies: dysuria, hematuria Musculoskeletal: Denies: back pain Skin: Denies: rash Neurological: Reports: as per HPI. Denies: headache, weakness, numbness, paresthesias, confusion Past Medical History Past Medical History: No Reported History Additional Past Medical History / Comment(s): back pain, IBS, Degen disc disease, bilateral knee issues History of Any Multi-Drug Resistant Organisms: None Reported Past Surgical History: No Surgical Hx Reported Past Psychological History: No Psychological Hx Reported Smoking Status: Former smoker Past Alcohol Use History: Occasional Past Drug Use History: Marijuana General Exam Limitations: no limitations General appearance: alert, in no apparent distress Head exam: Present: atraumatic, normocephalic Eye exam: Present: normal appearance. Absent: scleral icterus, conjunctival injection ENT exam: Present: normal oropharynx Neck exam: Present: normal inspection, full ROM. Absent: meningismus Respiratory exam: Present: normal lung sounds bilaterally. Absent: respiratory distress, wheezes, rales, rhonchi, stridor Cardiovascular Exam: Present: regular rate, normal rhythm, normal heart sounds. Absent: systolic murmur, diastolic murmur, rubs, gallop GI/Abdominal exam: Present: soft. Absent: distended, tenderness, guarding, rebound, rigid, mass Extremities exam: Present: normal inspection, normal capillary refill. Absent: pedal edema, calf tenderness Back exam: Present: normal inspection. Absent: CVA tenderness (R), CVA tenderness (L) Neurological exam: Present: alert, oriented X3, CN II-XII intact. Absent: motor sensory deficit Expanded Patient oriented to: Present: person, place, time Cranial nerves: EOM's Intact: Normal, Tongue Deviation: Normal, Facial Sensation: Normal Cerebellar function: Finger to Nose: Normal Sensory exam: Upper Extremity Light Touch: Normal Motor strength exam: RUE: 5, LUE: 5, RLE: 5, LLE: 5 Eye Response: (4) open spontaneously Motor Response: (6) obeys commands Verbal Response: (5) oriented Angela Total: 15 Skin exam: Present: warm, dry, intact, normal color. Absent: rash Course Vital Signs 04/24/22 04/24/22 04/24/22 18:23 19:31 20:55 Temperature 98.0 F 98 F Pulse Rate 105 H 100 93 Respiratory 18 18 18 Rate Blood Pressure 142/104 129/102 145/93 O2 Sat by Pulse 98 99 98 Oximetry EKG Findings - EKG Results: EKG: interpreted by WILL EDMONDS, sinus rhythm (With sinus arrhythmia. Rate 95 bpm), normal axis, normal QRS, normal ST/T, no acute changes Medical Decision Making - Medical Decision Making This patient is a 36-year-old man presenting with a constellation of symptoms that started actually 3 days ago initially with a feeling there was change in his balance or lightheadedness. Today the patient is manifesting some stuttering though his speech is clear there is no dysarthria. The patient also is able to express complex ideas with no evident word finding, the rate is just slowed. The patient has acute neurologic change workup here including computed tomogra phy scan and CT angiography which do not show any evidence of mass, arterial occlusion, or stroke. Labs normal. I did have discussion with patient regarding results and recommended follow-up with neurology including possible MRI to rule out demyelinating process. The patient and family returned to triage area for further clarification of the need for follow-up and this was discussed at length. - Lab Data Result diagrams: 04/24/22 18:36 04/24/22 18:36 Lab Results 04/24/22 04/24/22 04/24/22 Range/Units 18:36 18:36 18:36 WBC 13.9 H (3.8-10.6) k/uL RBC 5.46 (4.30-5.90) m/uL Hgb 17.2 (13.0-17.5) gm/dL Hct 50.1 (39.0-53.0) % MCV 91.8 (80.0-100.0) fL MCH 31.6 (25.0-35.0) pg MCHC 34.4 (31.0-37.0) g/dL RDW 11.8 (11.5-15.5) % Plt Count 242 (150-450) k/uL MPV 7.8 Neutrophils % 58 % Lymphocytes % 34 % Monocytes % 5 % Eosinophils % 1 % Basophils % 1 % Neutrophils # 8.0 H (1.3-7.7) k/uL Lymphocytes # 4.6 (1.0-4.8) k/uL Monocytes # 0.7 (0-1.0) k/uL Eosinophils # 0.2 (0-0.7) k/uL Basophils # 0.1 (0-0.2) k/uL PT 10.1 (9.0-12.0) sec INR 0.9 (<1.2) APTT 24.8 (22.0-30.0) sec Sodium 138 (137-145) mmol/L Potassium 4.4 (3.5-5.1) mmol/L Chloride 101 (98-107) mmol/L Carbon Dioxide 28 (22-30) mmol/L Anion Gap 9 mmol/L BUN 14 (9-20) mg/dL Creatinine 0.76 (0.66-1.25) mg/dL Est GFR (CKD-EPI)AfAm >90 (>60 ml/min/1.73 sqM) Est GFR (CKD-EPI)NonAf >90 (>60 ml/min/1.73 sqM) Glucose 106 H (74-99) mg/dL Calcium 9.4 (8.4-10.2) mg/dL Total Bilirubin 1.1 (0.2-1.3) mg/dL AST 25 (17-59) U/L ALT 29 (4-49) U/L Alkaline Phosphatase 100 (38-126) U/L Troponin I (0.000-0.034) ng/mL Total Protein 8.3 H (6.3-8.2) g/dL Albumin 4.8 (3.5-5.0) g/dL 04/24/22 Range/Units 18:36 WBC (3.8-10.6) k/uL RBC (4.30-5.90) m/uL Hgb (13.0-17.5) gm/dL Hct (39.0-53.0) % MCV (80.0-100.0) fL MCH (25.0-35.0) pg MCHC (31.0-37.0) g/dL RDW (11.5-15.5) % Plt Count (150-450) k/uL MPV Neutrophils % % Lymphocytes % % Monocytes % % Eosinophils % % Basophils % % Neutrophils # (1.3-7.7) k/uL Lymphocytes # (1.0-4.8) k/uL Monocytes # (0-1.0) k/uL Eosinophils # (0-0.7) k/uL Basophils # (0-0.2) k/uL PT (9.0-12.0) sec INR (<1.2) APTT (22.0-30.0) sec Sodium (137-145) mmol/L Potassium (3.5-5.1) mmol/L Chloride (98-107) mmol/L Carbon Dioxide (22-30) mmol/L Anion Gap mmol/L BUN (9-20) mg/dL Creatinine (0.66-1.25) mg/dL Est GFR (CKD-EPI)AfAm (>60 ml/min/1.73 sqM) Est GFR (CKD-EPI)NonAf (>60 ml/min/1.73 sqM) Glucose (74-99) mg/dL Calcium (8.4-10.2) mg/dL Total Bilirubin (0.2-1.3) mg/dL AST (17-59) U/L ALT (4-49) U/L Alkaline Phosphatase (38-126) U/L Troponin I <0.012 (0.000-0.034) ng/mL Total Protein (6.3-8.2) g/dL Albumin (3.5-5.0) g/dL Disposition Clinical Impression: Speech abnormality Disposition: HOME SELF-CARE Condition: Good Instructions (If sedation given, give patient instructions): Global Aphasia Exercises (DC) Is patient prescribed a controlled substance at d/c from ED?: No Referrals: [facility],Clinic [Primary Care Provider] - 1-2 days Desean Torrez MD [STAFF PHYSICIAN] - 1-2 days Time of Disposition: 20:23
[2022-04-24 18:47] LABS: Basophils # (A) 0.1 k/uL (0-0.2); Basophils % (A) 1 %; Eosinophils # (A) 0.2 k/uL (0-0.7); Eosinophils % (A) 1 %; HCT 50.1 % (39.0-53.0); HGB 17.2 gm/dL (13.0-17.5); Lymphocytes # (A) 4.6 k/uL (1.0-4.8); Lymphocytes % (A) 34 %; MCH 31.6 pg (25.0-35.0); MCHC 34.4 g/dL (31.0-37.0); MCV 91.8 fL (80.0-100.0); Mean Platelet Volume 7.8; Monocytes # (A) 0.7 k/uL (0-1.0); Monocytes % (A) 5 %; Neutrophils % (A) 58 %; Platelet Count 242 k/uL (150-450); RBC 5.46 m/uL (4.30-5.90); RDW 11.8 % (11.5-15.5); WBC 13.9 k/uL (3.8-10.6)
[2022-04-24 18:54] LABS: INR 0.9 (<1.2); Partial Thromboplastin Time 24.8 sec (22.0-30.0); Prothrombin Time 10.1 sec (9.0-12.0)
[2022-04-24 18:59] LABS: ALT 29 U/L (4-49); AST 25 U/L (17-59); African American GFR (CKD) >90 (>60 ml/min/1.73 sqM); Albumin 4.8 g/dL (3.5-5.0); Alkaline Phosphatase 100 U/L (38-126); Anion Gap 9 mmol/L; Blood Urea Nitrogen 14 mg/dL (9-20); Calcium 9.4 mg/dL (8.4-10.2); Carbon Dioxide 28 mmol/L (22-30); Chloride 101 mmol/L (98-107); Glucose 106 mg/dL (74-99); Non-African American GFR(CKD) >90 (>60 ml/min/1.73 sqM); Potassium 4.4 mmol/L (3.5-5.1); Sodium 138 mmol/L (137-145); Total Bilirubin 1.1 mg/dL (0.2-1.3); Total Protein 8.3 g/dL (6.3-8.2)
--- NOTE | 2022-04-24 19:13 | XR ---
EXAMINATION: XR chest 2V: 04/24/2022 6:58 PM CLINICAL INDICATION: altered mental status TECHNIQUE: Departmental protocol COMPARISON: 05/26/2021 FINDINGS: The lungs are clear. The pleural spaces are negative. The cardiac silhouette is not enlarged. The remainder of the mediastinal silhouette is unremarkable. The skeletal structures and soft tissues are negative for acute findings. IMPRESSION: No acute process.
--- NOTE | 2022-04-24 19:48 | CT ---
EXAMINATION TYPE: CT brain wo con for TPA DATE OF EXAM: 04/24/2022 COMPARISON: None HISTORY: slurred speech, weakness, dizziness CT DLP: 1832.5 mGycm. Automated Exposure Control for Dose Reduction was Utilized. TECHNIQUE: CT scan of the head is performed without contrast. FINDINGS: There is no acute intracranial hemorrhage, mass effect, or midline shift identified. The v entricles and sulci are within normal limits in size. The globes are intact and the visualized sinuse s are clear. IMPRESSION: No acute intracranial hemorrhage, mass effect, or midline shift is seen.
--- NOTE | 2022-04-24 19:54 | CT ---
EXAMINATION TYPE: CT angio head neck DATE OF EXAM: 04/24/2022 HISTORY: slurred speech, weakness, dizziness COMPARISON: None CT DLP: 1832.5 mGycm. Automated Exposure Control for Dose Reduction was Utilized. TECHNIQUE: CTA scan of the head and neck is performed with IV Contrast, patient injected with 65 mL of Isovue 370, axial images are obtained, coronal and sagittal reformatted images are reviewed. 3D re constructed images are created on an independent workstation and reviewed. FINDINGS: CTA neck: The bilateral carotid and vertebral arterial systems are widely patent. No abnormalities. No incidental neck findings. CTA brain: The anterior and posterior arterial circulation are widely patent. No abnormalities. No in cidental intracranial findings. IMPRESSION: No significant abnormality is seen. NASCET criteria was used in interpretation of this exam?
[2022-04-24 20:57] VITALS: BP 145/93; PULSE 93; TEMP 98
== END 2022-04-24 20:55 | disposition home or self-care (01) ==
LOC: EC 18:20
DX: R47.9 Unspecified speech disturbances (principal); F12.90 Cannabis use, unspecified, uncomplicated; Z87.891 Personal history of nicotine dependence
CPT/HCPCS: 99285 ×2; 36415; 93005; 80053; 84484; 85025; 85610; 85730; 71046; 70496; 70450; 70498; Q9967

== ENCOUNTER 2022-05-02 10:11 | Emergency (ER) | payer OTHER ==
[2022-05-02] MEDS ORDERED: SODIUM CHLORIDE 0.9% 1,000 ML IV STA (10:23)
--- NOTE | 2022-05-02 10:33 | ED ---
Dizziness HPI - General Chief Complaint: Neuro Symptoms/Deficit Stated Complaint: Light Headed Time Seen by Provider: 05/02/22 10:22 Source: patient, family, EMS, RN notes reviewed Mode of arrival: EMS Limitations: no limitations - History of Present Illness Initial Comments: This is a 36-year-old male who presents to the emergency department for lighthe wendydnsaadia. Patient states that last week Thursday, 04/21, he had an episode of dizziness that came out of nowhere. He would not describe this as a room spinning sensation, but states that he essentially felt lightheaded. These episodes often occurred in the evenings and resolved shortly afterwards. He didn't experience symptoms of chest pain, shortness of breath, or palpitations prior to symptoms occurring. On 04/24, he presented to the emergency department here for the symptoms of the dizziness, and at that time he felt like he was slurring his speech and felt off balance. He underwent a stroke workup including lab work, computed tomography scan, and CT angiogram of the brain and no irregularities were found. He was advised that an MRI could not be done at this time, and he subsequently went to [facility] the next day. He was admitted for 4 days and underwent a large amount of testing including an MRI of the brain, echocardiogram,, a large amount of blood work, and other things that he cannot remember. He was told that he has a vitamin B12 deficiency, and no other irregularities were found. He was instructed to follow up with a neurologist there on an outpatient basis, and is currently awaiting an appointment for that. He was also told to follow up with ENT for a possible inner ear problem, but has not scheduled this yet. He does have an appt with his PCP next week. States that at this time, no one has been able to find a cause for his symptoms. When he was at work today, he had an episode of lightheadedness, but he thinks that this was worse than normal. He felt nauseous and subsequently threw up, and the symptoms then resolved. Denies any fevers, chills, sore throat, cough, dyspnea, chest pain, palpitations, abdominal pain, diarrhea, back pain, or headaches. MD Complaint: dizziness, lightheadedness Timing: sudden onset Description: lightheadedness, off-balance History of Same: Yes History of Trauma: No - Related Data Home Medications Medication Instructions Recorded Confirmed Acetaminophen Tab [Tylenol Tab] 1,000 mg PO Q6H PRN 05/02/22 05/02/22 Ibuprofen [Motrin] 800 mg PO Q8H PRN 05/02/22 05/02/22 Multivitamins, Thera [Multivitamin 1 tab PO DAILY 05/02/22 05/02/22 (formulary)] Omeprazole 20 mg PO DAILY PRN 05/02/22 05/02/22 Allergies Allergy/AdvReac Type Severity Reaction Status Date / Time No Known Allergies Allergy Verified 05/02/22 12:02 Review of Systems ROS Statement: Those systems with pertinent positive or pertinent negative responses have been documented in the HPI. ROS Other: All systems not noted in ROS Statement are negative. Past Medical History Past Medical History: No Reported History Additional Past Medical History / Comment(s): back pain, IBS, Degen disc disease, bilateral knee issues History of Any Multi-Drug Resistant Organisms: None Reported Past Surgical History: No Surgical Hx Reported Past Psychological History: No Psychological Hx Reported Smoking Status: Former smoker Past Alcohol Use History: Occasional Past Drug Use History: Marijuana General Exam Limitations: no limitations General appearance: alert, in no apparent distress Head exam: Present: atraumatic, normocephalic, normal inspection Eye exam: Present: normal appearance, PERRL, EOMI. Absent: scleral icterus, con junctival injection, periorbital swelling ENT exam: Present: TM's normal bilaterally, normal external ear exam Neck exam: Present: normal inspection. Absent: tenderness, meningismus, lymphadenopathy Respiratory exam: Present: normal lung sounds bilaterally. Absent: respiratory distress, wheezes, rales, rhonchi, stridor Cardiovascular Exam: Present: regular rate, normal rhythm, normal heart sounds. Absent: systolic murmur, diastolic murmur, rubs, gallop, clicks GI/Abdominal exam: Present: soft, normal bowel sounds. Absent: distended, tenderness, guarding, rebound, rigid Neurological exam: Present: alert, oriented X3, CN II-XII intact, normal gait Psychiatric exam: Present: normal affect, normal mood Skin exam: Present: warm, dry, intact, normal color. Absent: rash Course Vital Signs 05/02/22 05/02/22 10:12 13:54 Temperature 98.6 F 97.9 F Pulse Rate 90 75 Respiratory 18 19 Rate Blood Pressure 119/95 122/82 O2 Sat by Pulse 96 97 Oximetry EKG Findings - EKG Comments: EKG Findings:: Sinus rhythm. Normal axis. Ventricular rate 71 bpm, W[place] interval 164 ms, QRS duration 90 ms, QTC 394 ms. EKG interpreted by myself and ED attending. Medical Decision Making - Medical Decision Making This is a 36-year-old male who presents to the emergency department for dizziness. Patient states that he does have multiple outpatient appointments set up, and he requests to avoid any repeat testing such as COVID/influenza testing, chest x-ray, or computed tomography scan of the brain at this time. He is agreeable to obtain basic lab work and received IV fluids. Ultrasound of the bilateral carotid arteries was obtained. This did not identify any signs of carotid artery plaques or stenosis. The CTA he had here on 04/24 did reveal patent carotid arteries. The US was also obtained to evaluate the blood flow, which was found to be antegrade without any elevated velocities. Lab work obtained and found to be nonactionable. At this time, we've also not found any irregularities to account for his symptoms. There are multiple possibilities, including a neurological, cardiac, or inner ear process. Discussed the need to follow up with specialists for further evaluation and testing that cannot be per formed in the emergency department. I also encouraged him to document his symptoms, including what he was doing before hand and when these were occurring with associated symptoms to see if he can establish a pattern to this. At this time, the patient feels back to baseline. States that he felt fine immediately after throwing up, and the largest reason he had to come to the emergency department was due to protocol set in place by his job, because this episode happened at work. Return precautions reviewed in depth, the patient is instructed to return to the emergency department with any new, worsening, or concerning symptoms. Patient verbalized understanding. This case was discussed in detail with the attending ED physician. Presentation, findings, and treatment plan discussed in detail as well. - Lab Data Result diagrams: 05/02/22 10:36 05/02/22 11:08 Lab Results 05/02/22 05/02/22 05/02/22 Range/Units 10:36 10:36 11:08 WBC 10.0 (3.8-10.6) k/uL RBC 4.79 (4.30-5.90) m/uL Hgb 15.5 (13.0-17.5) gm/dL Hct 43.7 (39.0-53.0) % MCV 91.3 (80.0-100.0) fL MCH 32.3 (25.0-35.0) pg MCHC 35.4 (31.0-37.0) g/dL RDW 12.3 (11.5-15.5) % Plt Count 185 (150-450) k/uL MPV 10.7 Neutrophils % 63 % Lymphocytes % 28 % Monocytes % 6 % Eosinophils % 1 % Basophils % 1 % Neutrophils # 6.3 (1.3-7.7) k/uL Lymphocytes # 2.8 (1.0-4.8) k/uL Monocytes # 0.6 (0-1.0) k/uL Eosinophils # 0.1 (0-0.7) k/uL Basophils # 0.1 (0-0.2) k/uL ESR Cancelled PT 10.2 (9.0-12.0) sec INR 1.0 (<1.2) APTT 24.1 (22.0-30.0) sec D-Dimer 0.21 (<0.60) mg/L FEU Sodium (137-145) mmol/L Potassium (3.5-5.1) mmol/L Chloride (98-107) mmol/L Carbon Dioxide (22-30) mmol/L Anion Gap mmol/L BUN (9-20) mg/dL Creatinine (0.66-1.25) mg/dL Est GFR (CKD-EPI)AfAm (>60 ml/min/1.73 sqM) Est GFR (CKD-EPI)NonAf (>60 ml/min/1.73 sqM) Glucose (74-99) mg/dL Calcium (8.4-10.2) mg/dL Total Bilirubin (0.2-1.3) mg/dL AST (17-59) U/L ALT (4-49) U/L Alkaline Phosphatase (38-126) U/L Troponin I <0.012 (0.000-0.034) ng/mL C-Reactive Protein (<1.0) mg/dL Total Protein (6.3-8.2) g/dL Albumin (3.5-5.0) g/dL TSH (0.465-4.680) mIU/L Urine Color Urine Appearance (Clear) Urine pH (5.0-8.0) Ur Specific Edelstein (1.001-1.035) Urine Protein (Negative) Urine Glucose (UA) (Negative) Urine Ketones (Negative) Urine Blood (Negative) Urine Nitrite (Negative) Urine Bilirubin (Negative) Urine Urobilinogen (<2.0) mg/dL Ur Leukocyte Esterase (Negative) Urine Opiates Screen (NotDetected) Ur Oxycodone Screen (NotDetected) Urine Methadone Screen (NotDetected) Ur Propoxyphene Screen (NotDetected) Ur Barbiturates Screen (NotDetected) U Tricyclic Antidepress (NotDetected) Ur Phencyclidine Scrn (NotDetected) Ur Amphetamines Screen (NotDetected) U Methamphetamines Scrn (NotDetected) U Benzodiazepines Scrn (NotDetected) Urine Cocaine Screen (NotDetected) U Marijuana (THC) Screen (NotDetected) Heterophile Antibody (Negative) 05/02/22 05/02/22 05/02/22 Range/Units 11:08 11:08 12:10 WBC (3.8-10.6) k/uL RBC (4.30-5.90) m/uL Hgb (13.0-17.5) gm/dL Hct (39.0-53.0) % MCV (80.0-100.0) fL MCH (25.0-35.0) pg MCHC (31.0-37.0) g/dL RDW (11.5-15.5) % Plt Count (150-450) k/uL MPV Neutrophils % % Lymphocytes % % Monocytes % % Eosinophils % % Basophils % % Neutrophils # (1.3-7.7) k/uL Lymphocytes # (1.0-4.8) k/uL Monocytes # (0-1.0) k/uL Eosinophils # (0-0.7) k/uL Basophils # (0-0.2) k/uL ESR PT (9.0-12.0) sec INR (<1.2) APTT (22.0-30.0) sec D-Dimer (<0.60) mg/L FEU Sodium 137 (137-145) mmol/L Potassium 4.5 (3.5-5.1) mmol/L Chloride 106 (98-107) mmol/L Carbon Dioxide 29 (22-30) mmol/L Anion Gap 2 mmol/L BUN 11 (9-20) mg/dL Creatinine 0.72 (0.66-1.25) mg/dL Est GFR (CKD-EPI)AfAm >90 (>60 ml/min/1.73 sqM) Est GFR (CKD-EPI)NonAf >90 (>60 ml/min/1.73 sqM) Glucose 89 (74-99) mg/dL Calcium 8.3 L (8.4-10.2) mg/dL Total Bilirubin 1.2 (0.2-1.3) mg/dL AST 29 (17-59) U/L ALT 45 (4-49) U/L Alkaline Phosphatase 79 (38-126) U/L Troponin I (0.000-0.034) ng/mL C-Reactive Protein 1.6 H (<1.0) mg/dL Total Protein 6.2 L (6.3-8.2) g/dL Albumin 3.6 (3.5-5.0) g/dL TSH 1.880 (0.465-4.680) mIU/L Urine Color Yellow Urine Appearance Clear (Clear) Urine pH 7.0 (5.0-8.0) Ur Specific Edelstein 1.015 (1.001-1.035) Urine Protein Negative (Negative) Urine Glucose (UA) Negative (Negative) Urine Ketones Negative (Negative) Urine Blood Negative (Negative) Urine Nitrite Negative (Negative) Urine Bilirubin Negative (Negative) Urine Urobilinogen <2.0 (<2.0) mg/dL Ur Leukocyte Esterase Negative (Negative) Urine Opiates Screen (NotDetected) Ur Oxycodone Screen (NotDetected) Urine Methadone Screen (NotDetected) Ur Propoxyphene Screen (NotDetected) Ur Barbiturates Screen (NotDetected) U Tricyclic Antidepress (NotDetected) Ur Phencyclidine Scrn (NotDetected) Ur Amphetamines Screen (NotDetected) U Methamphetamines Scrn (NotDetected) U Benzodiazepines Scrn (NotDetected) Urine Cocaine Screen (NotDetected) U Marijuana (THC) Screen (NotDetected) Heterophile Antibody Negative (Negative) 05/02/22 Range/Units 12:10 WBC (3.8-10.6) k/uL RBC (4.30-5.90) m/uL Hgb (13.0-17.5) gm/dL Hct (39.0-53.0) % MCV (80.0-100.0) fL MCH (25.0-35.0) pg MCHC (31.0-37.0) g/dL RDW (11.5-15.5) % Plt Count (150-450) k/uL MPV Neutrophils % % Lymphocytes % % Monocytes % % Eosinophils % % Basophils % % Neutrophils # (1.3-7.7) k/uL Lymphocytes # (1.0-4.8) k/uL Monocytes # (0-1.0) k/uL Eosinophils # (0-0.7) k/uL Basophils # (0-0.2) k/uL ESR PT (9.0-12.0) sec INR (<1.2) APTT (22.0-30.0) sec D-Dimer (<0.60) mg/L FEU Sodium (137-145) mmol/L Potassium (3.5-5.1) mmol/L Chloride (98-107) mmol/L Carbon Dioxide (22-30) mmol/L Anion Gap mmol/L BUN (9-20) mg/dL Creatinine (0.66-1.25) mg/dL Est GFR (CKD-EPI)AfAm (>60 ml/min/1.73 sqM) Est GFR (CKD-EPI)NonAf (>60 ml/min/1.73 sqM) Glucose (74-99) mg/dL Calcium (8.4-10.2) mg/dL Total Bilirubin (0.2-1.3) mg/dL AST (17-59) U/L ALT (4-49) U/L Alkaline Phosphatase (38-126) U/L Troponin I (0.000-0.034) ng/mL C-Reactive Protein (<1.0) mg/dL Total Protein (6.3-8.2) g/dL Albumin (3.5-5.0) g/dL TSH (0.465-4.680) mIU/L Urine Color Urine Appearance (Clear) Urine pH (5.0-8.0) Ur Specific Edelstein (1.001-1.035) Urine Protein (Negative) Urine Glucose (UA) (Negative) Urine Ketones (Negative) Urine Blood (Negative) Urine Nitrite (Negative) Urine Bilirubin (Negative) Urine Urobilinogen (<2.0) mg/dL Ur Leukocyte Esterase (Negative) Urine Opiates Screen Not Detected (NotDetected) Ur Oxycodone Screen Not Detected (NotDetected) Urine Methadone Screen Not Detected (NotDetected) Ur Propoxyphene Screen Not Detected (NotDetected) Ur Barbiturates Screen Not Detected (NotDetected) U Tricyclic Antidepress Not Detected (NotDetected) Ur Phencyclidine Scrn Not Detected (NotDetected) Ur Amphetamines Screen Not Detected (NotDetected) U Methamphetamines Scrn Not Detected (NotDetected) U Benzodiazepines Scrn Not Detected (NotDetected) Urine Cocaine Screen Not Detected (NotDetected) U Marijuana (THC) Screen Not Detected (NotDetected) Heterophile Antibody (Negative) - Radiology Data Radiology results: report reviewed, image reviewed Disposition Clinical Impression: Dizziness, Lightheaded, Nausea and vomiting Disposition: HOME SELF-CARE Instructions (If sedation given, give patient instructions): Lightheadedness (ED), Dizziness (ED) Additional Instructions: Return to the emergency department with any new, worsening, or concerning symptoms. Try keeping a log of your symptoms, including what you were doing beforehand and during the episode with associated symptoms to see if you can establish a pattern to these episodes. Make sure that you follow up with your primary care provider, neurologist, and the ear nose and throat provider for further testing for your ongoing symptoms. Follow up with your primary care provider in 1-2 days. Is patient prescribed a controlled substance at d/c from ED?: No Referrals: [facility],Clinic [Primary Care Provider] - 05/06/22 4:30 pm (This is a previously scheduled appointment for knee pain. [facility] will call for a hospital follow up appointment. )
[2022-05-02 10:53] LABS: Basophils # (A) 0.1 k/uL (0-0.2); Basophils % (A) 1 %; Eosinophils # (A) 0.1 k/uL (0-0.7); Eosinophils % (A) 1 %; HCT 43.7 % (39.0-53.0); HGB 15.5 gm/dL (13.0-17.5); Lymphocytes # (A) 2.8 k/uL (1.0-4.8); Lymphocytes % (A) 28 %; MCH 32.3 pg (25.0-35.0); MCHC 35.4 g/dL (31.0-37.0); MCV 91.3 fL (80.0-100.0); Mean Platelet Volume 10.7; Monocytes # (A) 0.6 k/uL (0-1.0); Monocytes % (A) 6 %; Neutrophils # (A) 6.3 k/uL (1.3-7.7); Neutrophils % (A) 63 %; Platelet Count 185 k/uL (150-450); RBC 4.79 m/uL (4.30-5.90); RDW 12.3 % (11.5-15.5)
--- NOTE | 2022-05-02 11:18 | US ---
EXAMINATION TYPE: US carotid duplex BILAT DATE OF EXAM: 05/02/2022 COMPARISON: CTA neck 8 days ago CLINICAL HISTORY: Dizziness, lightheadednss. Dizziness, lightheadedness. Previous smoker. TECHNIQUE: Carotid duplex ultrasound examination. Indirect Doppler criteria was utilized. FINDINGS: EXAM MEASUREMENTS: RIGHT: Peak Systolic Velocity (PSV) cm/sec ----- Right CCA: 80.9 ----- Right ICA: 78.2 ----- Right ECA: 89.7 ICA/CCA ratio: 1.0 RIGHT: End Diastole cm/sec ----- Right CCA: 28.1 ----- Right ICA: 30.2 ----- Right ECA: 18.2 LEFT: Peak Systolic Velocity (PSV) cm/sec ----- Left CCA: 77.6 ----- Left ICA: 79.9 ----- Left ECA: 79.0 ICA/CCA ratio: 1.0 LEFT: End Diastole cm/sec ----- Left CCA: 24.8 ----- Left ICA: 31.9 ----- Left ECA: 14.5 VERTEBRALS (direction of flow): Right Vertebral: Antegrade Left Vertebral: Antegrade Rhythm: Normal ROAD CONDUCTOR NOTES: No elevated velocities at this time. Grayscale images show no significant focal plaque. IMPRESSION: No significant plaque or stenosis in the internal carotid arteries bilaterally. Findings correlate with recent CTA neck study. Criteria for Assigning % of Stenosis / Diameter reduction (Estimation based on the indirect measurements of the internal carotid artery velocities (ICA PSV). 1. Normal (no stenosis)=ICA PSV < 125 cm/s: ratio < 2.0: ICA EDV<40 cm/s. 2. Less than 50% stenosis=ICA PSV < 125 cm/s: ratio < 2.0: ICA EDV<40 cm/s. 3. 50 to 69% stenosis=ICA PSV of 125 to 230 cm/s: ration 2.0 ? 4.0: ICA EDV 40-100 cm/s. 4. Greater than 70% stenosis to near occlusion= ICA PSV > 230 cm/s: ratio > 4.0: ICA EDV > 100 cm/s. 5. Near occlusion= ICA PSV velocities may be low or undetectable: variable ratio and ICA EDV. 6. Total occlusion=unable to detect flow.
[2022-05-02 11:46] LABS: Partial Thromboplastin Time 24.1 sec (22.0-30.0); Prothrombin Time 10.2 sec (9.0-12.0)
[2022-05-02 11:52] LABS: ALT 45 U/L (4-49); AST 29 U/L (17-59); African American GFR (CKD) >90 (>60 ml/min/1.73 sqM); Albumin 3.6 g/dL (3.5-5.0); Alkaline Phosphatase 79 U/L (38-126); Anion Gap 2 mmol/L; Blood Urea Nitrogen 11 mg/dL (9-20); C Reactive Protein 1.6 mg/dL (<1.0); Calcium 8.3 mg/dL (8.4-10.2); Carbon Dioxide 29 mmol/L (22-30); Chloride 106 mmol/L (98-107); Glucose 89 mg/dL (74-99); Non-African American GFR(CKD) >90 (>60 ml/min/1.73 sqM); Potassium 4.5 mmol/L (3.5-5.1); Sodium 137 mmol/L (137-145); Total Bilirubin 1.2 mg/dL (0.2-1.3); Total Protein 6.2 g/dL (6.3-8.2)
[2022-05-02 12:49] LABS: Appearance,Urine Clear (Clear); Bilirubin,Urine Negative (Negative); Blood,Urine Negative (Negative); Color,Urine Yellow; Glucose,Urine (UA) Negative (Negative); Ketones,Urine Negative (Negative); Leukocyte Esterase,Urine Negative (Negative); Nitrite,Urine Negative (Negative); Protein,Urine Negative (Negative); Specific Gravity,Urine 1.015 (1.001-1.035); Urobilinogen,Urine <2.0 mg/dL (<2.0)
[2022-05-02 13:06] LABS: Amphetamine Screen,Urine Not Detected (NotDetected); Barbiturate Screen,Urine Not Detected (NotDetected); Benzodiazepines Screen,Urine Not Detected (NotDetected); Cocaine Screen,Urine Not Detected (NotDetected); Methadone Screen, Urine Not Detected (NotDetected); Opiate Screen,Urine Not Detected (NotDetected); Oxycodone Screen, Urine Not Detected (NotDetected); Phencyclidine Screen,Urine Not Detected (NotDetected); Tricyclic Antidepressant,Urine Not Detected (NotDetected); Urn Cannabinoid Scrn Not Detected (NotDetected)
[2022-05-02 13:56] VITALS: BP 122/82; PULSE 75; RESP 19; TEMP 97.9
== END 2022-05-02 13:56 | disposition home or self-care (01) ==
LOC: EC 10:11
DX: R42 Dizziness and giddiness (principal); R11.2 Nausea with vomiting, unspecified; F12.90 Cannabis use, unspecified, uncomplicated; Z87.891 Personal history of nicotine dependence
CPT/HCPCS: 36415; 80053; 80306; 81003; 84443; 84484; 85025; 85379; 85610; 85730; 86140; 86308; 93880; 96360; 96361; 99284

== ENCOUNTER 2023-02-24 19:34 | Outpatient (CLI) | payer OTHER | END 2023-02-25 05:50 | disposition home or self-care (01) | LOC: 3 N SLEEP 19:34 | PROVIDERS: ATTEND Internal Medicine Critical Care Medicine | DX: G47.10 Hypersomnia, unspecified (principal) | CPT/HCPCS: 95810 ==

== ENCOUNTER → 2023-05-07 | Outpatient (CLI) | payer OTHER ==
--- NOTE | 2023-05-07 14:53 | XR ---
3 views right hand. DATE: 05/07/2023. COMPARISON: None available. CLINICAL HISTORY: Question injury to right index finger. FINDINGS: There is no fracture, subluxation or dislocation. The joint spaces and soft tissues are within normal limits. IMPRESSION: No acute osseous abnormalities.
== END | disposition home or self-care (01) ==
LOC: RADXRMAIN 14:14
PROVIDERS: ATTEND Emergency Medicine
DX: S67.190A Crushing injury of right index finger, initial encounter (principal); X58.XXXA Exposure to other specified factors, initial encounter

== ENCOUNTER 2023-08-21 03:36 | Emergency (ER) | payer OTHER ==
--- NOTE | 2023-08-21 03:57 | ED ---
General Adult HPI <ShanitaGiovany salazar - Last Filed: 08/21/23 03:58> - General Source: patient, RN notes reviewed Mode of arrival: ambulatory Limitations: no limitations <Jayne Wesley - Last Filed: 08/21/23 09:23> - General Chief complaint: Nausea/Vomiting/Diarrhea Stated complaint: NVD Time Seen by Provider: 08/21/23 03:57 - History of Present Illness Initial comments: 37-year-old male presented to the ED with complaints of nausea vomiting diarrhea. Patient states yesterday onset of some nausea vomiting diarrhea. Also notes some associated abdominal pain. States tonight he had some "globs" of blood in his vomit prompting him to present to the ED for further evaluation. (Giovany Whyte) This is a 37-year-old male who presents to the emergency department for nausea, vomiting, and diarrhea. States that the diarrhea started about 4 days ago with the nausea and vomiting last night. He has generalized abdominal discomfort from all of the vomiting, but denies any localized areas of pain and states that the pain is not severe. Denies any fever/chills or sick contacts. He did have some specks of blood in his vomit, which concerned him, however that has since resolved. When I went to evaluate the patient in the examination room, he was sleeping on the bed comfortably exhibiting no signs of distress. (Jayne Wesley) - Related Data Home Medications Medication Instructions Recorded Confirmed Acetaminophen Tab [Tylenol Tab] 1,000 mg PO Q6H PRN 05/02/22 05/02/22 Ibuprofen [Motrin] 800 mg PO Q8H PRN 05/02/22 05/02/22 Multivitamins, Thera [Multivitamin 1 tab PO DAILY 05/02/22 05/02/22 (formulary)] Omeprazole 20 mg PO DAILY PRN 05/02/22 05/02/22 Previous Rx's Medication Instructions Recorded Metoclopramide [Reglan] 10 mg PO Q6H PRN #30 tab 08/21/23 Ondansetron Odt [Zofran Odt] 4 mg PO Q8HR PRN #20 tab 08/21/23 Pantoprazole Sodium 40 mg PO DAILY 14 Days #14 tab 08/21/23 Allergies Allergy/AdvReac Type Severity Reaction Status Date / Time No Known Allergies Allergy Verified 08/21/23 04:06 Review of Systems ROS Other: All systems not noted in ROS Statement are negative. <Giovany Whyte - Last Filed: 08/21/23 03:58> ROS Other: All systems not noted in ROS Statement are negative. <Jayne Wesley - Last Filed: 08/21/23 09:23> ROS Statement: Those systems with pertinent positive or pertinent negative responses have been documented in the HPI. Past Medical History Past Medical History: No Reported History Additional Past Medical History / Comment(s): back pain, IBS, Degen disc disease, bilateral knee issues History of Any Multi-Drug Resistant Organisms: None Reported Past Surgical History: No Surgical Hx Reported Past Psychological History: No Psychological Hx Reported Smoking Status: Former smoker Past Alcohol Use History: Occasional Past Drug Use History: Marijuana <Giovany Whyte - Last Filed: 08/21/23 03:58> General Exam <Giovany Whyte - Last Filed: 08/21/23 03:58> Limitations: no limitations General appearance: alert, in no apparent distress Head exam: Present: atraumatic, normocephalic, normal inspection Respiratory exam: Present: normal lung sounds bilaterally. Absent: respiratory distress, wheezes, rales, rhonchi, stridor Cardiovascular Exam: Present: regular rate, normal rhythm, normal heart sounds. Absent: systolic murmur, diastolic murmur, rubs, gallop, clicks GI/Abdominal exam: Present: soft, normal bowel sounds. Absent: distended, tend erness, guarding, rebound, rigid Neurological exam: Present: alert, oriented X3, CN II-XII intact Psychiatric exam: Present: normal affect, normal mood Skin exam: Present: warm, dry, intact, normal color. Absent: rash <Jayne Wesley - Last Filed: 08/21/23 09:23> - General Exam Comments Initial Comments: Visual Physical Exam Vital signs reviewed General: Well-appearing, nontoxic, no acute distress. Head: Normocephalic, atraumatic Eyes: PERRLA, EOMI ENT: Airway patent Chest: Nonlabored breathing Skin: No visual rash, normal skin tone Neuro: Alert and oriented 3 Musculoskeletal: No gross abnormalities (Giovany Whyte) Course Vital Signs 08/21/23 08/21/23 08/21/23 04:06 06:36 07:38 Temperature 98.0 F Pulse Rate 109 H 75 72 Respiratory 22 18 20 Rate Blood Pressure 111/78 108/76 112/82 O2 Sat by Pulse 96 97 97 Oximetry Medical Decision Making <Giovany Whyte - Last Filed: 08/21/23 03:58> - Lab Data Result diagrams: 08/21/23 04:18 08/21/23 04:18 <Jayne Wesley - Last Filed: 08/21/23 09:23> - Medical Decision Making Quicknote portion performed. Signed Giovany Whyte PA-C (Giovany Whyte) This is a 37 year old male who presents to the emergency department for nausea and vomiting. Was pt. sent in by a medical professional or institution? @ -No Did you speak to anyone other than the patient for history? @ -No Did you review nursing and triage notes? @ -Yes, and I agree, it is accurate with regards to the patient's symptoms. Were old charts reviewed? @ -No Differential Diagnosis? @ -Differential Nausea and Vomiting: Gastroenteritis, cholecystitis, appendicitis, pancreatitis, migraine, benign positional vertigo, food borne illness, pyelonephritis, irritable bowel syndrome, influenza, Covid, GERD, incarcerated hernia, intestinal obstruction, this is not meant to be an all-inclusive list. EKG interpreted by me (3pts min.)? @ -Not obtained X-rays interpreted by me (1pt min.)? @ -Not obtained CT interpreted by me (1pt min.)? @ -Not obtained U/S interpreted by me (1pt. min.)? @ -Not obtained What testing was considered but not performed? (CT, X-rays, U/S, labs)? Why? @ -None What meds were considered but not given? Why? @ -None Did you discuss the management of the patient with other professionals? @ -No Did you reconcile home meds? @ -No Was smoking cessation discussed for >3mins.? @ -No Was critical care preformed (if so, how long)? @ -No Were there social determinants of health that impacted care today? How? (Homelessness, low income, unemployed, alcoholism, drug addiction, transportation, low edu. Level, literacy, decrease access to med. care, half-way, rehab)? @ -No Was there de-escalation of care discussed even if they declined? (Discuss DNR or withdrawal of care, Hospice)? @ -No What co-morbidities impacted this encounter? (DM, HTN, Smoking, COPD, CAD, Cancer, CVA, Hep., AIDS, mental health diagnosis, sleep apnea, morbid obesity)? @ -IBS Was patient admitted / discharged? @ -Discharged. Lab work demonstrates mild leukocytosis, which is likely reactive, and was otherwise unremarkable. Patient positive for influenza B. He was initially treated with IV fluids, Zofran, and famotidine. He had some improvement in symptoms, but did still feel somewhat nauseous. He was subsequently given a dose of Reglan, which he felt was much more beneficial. Patient was concerned about a couple specks of blood in his vomit. Patient had a large bucket of emesis in the emergency department that I examined and there was no evidence of any blood. Advised that sometimes this can be related to irritation from repeated episodes of emesis. He was given a prescription for pantoprazole along with Zofran and Reglan. Patient discharged home in stable condition. He is advised to slowly advance his diet as tolerated and remain well-hydrated. Undiagnosed new problem with uncertain prognosis? @ -None Drug Therapy requiring intensive monitoring for toxicity (Heparin, Nitro, Insulin, Cardizem)? @ -None Were any procedures done? @ -None Diagnosis/symptom? @ -Nausea and vomiting, influenza B Acute, or Chronic, or Acute on Chronic? @ -Acute Uncomplicated (without systemic symptoms) or Complicated (systemic symptoms)? @ -Uncomplicated Side effects of treatment? @ -None Exacerbation, Progression, or Severe Exacerbation] @ -Not applicable Poses a threat to life or bodily function? @ -No Return precautions reviewed in depth, the patient is instructed to return to the emergency department with any new, worsening, or concerning symptoms. Patient verbalized understanding. This case was discussed in detail with the attending ED physician, Dr. Garcia. Presentation, findings, and treatment plan discussed in detail as well. (Jayne Wesley) - Lab Data Lab Results 08/21/23 08/21/23 08/21/23 Range/Units 04:18 04:18 04:18 WBC 14.0 H (3.8-10.6) k/uL RBC 5.37 (4.30-5.90) m/uL Hgb 16.3 (13.0-17.5) gm/dL Hct 50.1 (39.0-53.0) % MCV 93.2 (80.0-100.0) fL MCH 30.3 (25.0-35.0) pg MCHC 32.5 (31.0-37.0) g/dL RDW 11.9 (11.5-15.5) % Plt Count 217 (150-450) k/uL MPV 8.9 Neutrophils % 76 % Lymphocytes % 17 % Monocytes % 5 % Eosinophils % 1 % Basophils % 0 % Neutrophils # 10.7 H (1.3-7.7) k/uL Lymphocytes # 2.4 (1.0-4.8) k/uL Monocytes # 0.7 (0-1.0) k/uL Eosinophils # 0.1 (0-0.7) k/uL Basophils # 0.1 (0-0.2) k/uL Sodium 137 (137-145) mmol/L Potassium 4.8 (3.5-5.1) mmol/L Chloride 105 (98-107) mmol/L Carbon Dioxide 27 (22-30) mmol/L Anion Gap 5 mmol/L BUN 12 (9-20) mg/dL Creatinine 0.63 L (0.66-1.25) mg/dL Est GFR (CKD-EPI)AfAm >90 (>60 ml/min/1.73 sqM) Est GFR (CKD-EPI)NonAf >90 (>60 ml/min/1.73 sqM) Glucose 114 H (74-99) mg/dL Calcium 8.5 (8.4-10.2) mg/dL Total Bilirubin 1.6 H (0.2-1.3) mg/dL AST 41 (17-59) U/L ALT 46 (4-49) U/L Alkaline Phosphatase 77 (38-126) U/L Total Protein 6.7 (6.3-8.2) g/dL Albumin 3.8 (3.5-5.0) g/dL Amylase 52 (30-110) U/L Lipase 51 (23-300) U/L Urine Color Urine Appearance (Clear) Urine pH (5.0-8.0) Ur Specific [place] (1.001-1.035) Urine Protein (Negative) Urine Glucose (UA) (Negative) Urine Ketones (Negative) Urine Blood (Negative) Urine Nitrite (Negative) Urine Bilirubin (Negative) Urine Urobilinogen (<2.0) mg/dL Ur Leukocyte Esterase (Negative) Influenza Type A (PCR) Not Detected (Not Detectd) Influenza Type B (PCR) Detected A (Not Detectd) RSV (PCR) Not Detected (Not Detectd) SARS-CoV-2 (PCR) Not Detected (Not Detectd) 08/21/23 Range/Units 07:38 WBC (3.8-10.6) k/uL RBC (4.30-5.90) m/uL Hgb (13.0-17.5) gm/dL Hct (39.0-53.0) % MCV (80.0-100.0) fL MCH (25.0-35.0) pg MCHC (31.0-37.0) g/dL RDW (11.5-15.5) % Plt Count (150-450) k/uL MPV Neutrophils % % Lymphocytes % % Monocytes % % Eosinophils % % Basophils % % Neutrophils # (1.3-7.7) k/uL Lymphocytes # (1.0-4.8) k/uL Monocytes # (0-1.0) k/uL Eosinophils # (0-0.7) k/uL Basophils # (0-0.2) k/uL Sodium (137-145) mmol/L Potassium (3.5-5.1) mmol/L Chloride (98-107) mmol/L Carbon Dioxide (22-30) mmol/L Anion Gap mmol/L BUN (9-20) mg/dL Creatinine (0.66-1.25) mg/dL Est GFR (CKD-EPI)AfAm (>60 ml/min/1.73 sqM) Est GFR (CKD-EPI)NonAf (>60 ml/min/1.73 sqM) Glucose (74-99) mg/dL Calcium (8.4-10.2) mg/dL Total Bilirubin (0.2-1.3) mg/dL AST (17-59) U/L ALT (4-49) U/L Alkaline Phosphatase (38-126) U/L Total Protein (6.3-8.2) g/dL Albumin (3.5-5.0) g/dL Amylase (30-110) U/L Lipase (23-300) U/L Urine Color Light Yellow Urine Appearance Clear (Clear) Urine pH 7.5 (5.0-8.0) Ur Specific [place] 1.017 (1.001-1.035) Urine Protein Negative (Negative) Urine Glucose (UA) Negative (Negative) Urine Ketones Negative (Negative) Urine Blood Negative (Negative) Urine Nitrite Negative (Negative) Urine Bilirubin Negative (Negative) Urine Urobilinogen <2.0 (<2.0) mg/dL Ur Leukocyte Esterase Negative (Negative) Influenza Type A (PCR) (Not Detectd) Influenza Type B (PCR) (Not Detectd) RSV (PCR) (Not Detectd) SARS-CoV-2 (PCR) (Not Detectd) Disposition <Giovany Whyte - Last Filed: 08/21/23 03:58> Is patient prescribed a controlled substance at d/c from ED?: No Time of Disposition: 08:09 <Jayne Wesley - Last Filed: 08/21/23 09:23> Clinical Impression: Nausea and vomiting, Influenza B Disposition: HOME SELF-CARE Instructions (If sedation given, give patient instructions): Influenza (ED), Acute Nausea and Vomiting (ED), Acute Diarrhea (ED) Additional Instructions: Return to the emergency department with any new, worsening, or concerning symptoms. Take the pantoprazole daily for 2 weeks. Try to take this 30 to 60 minutes before eating or taking other medications. You can take the Zofran up to every 8 hours as needed for nausea and vomiting and the Reglan up to every 6 hours. You can take [id number] Imodium as needed for diarrhea. Slowly advance your diet as tolerated and remain well-hydrated. Follow up with your primary care provider in 1-2 days. Prescriptions: Pantoprazole Sodium 40 mg PO DAILY 14 Days #14 tab Metoclopramide [Reglan] 10 mg PO Q6H PRN #30 tab PRN Reason: Nausea And Vomiting Ondansetron Odt [Zofran Odt] 4 mg PO Q8HR PRN #20 tab PRN Reason: Nausea And Vomiting Referrals: [facility],Clinic [Primary Care Provider] - 1-2 days
[2023-08-21 04:41] VITALS: TEMP 98
[2023-08-21 04:53] LABS: Basophils # (A) 0.1 k/uL (0-0.2); Basophils % (A) 0 %; Eosinophils # (A) 0.1 k/uL (0-0.7); Eosinophils % (A) 1 %; HCT 50.1 % (39.0-53.0); HGB 16.3 gm/dL (13.0-17.5); Lymphocytes # (A) 2.4 k/uL (1.0-4.8); Lymphocytes % (A) 17 %; MCH 30.3 pg (25.0-35.0); MCHC 32.5 g/dL (31.0-37.0); MCV 93.2 fL (80.0-100.0); Mean Platelet Volume 8.9; Monocytes # (A) 0.7 k/uL (0-1.0); Monocytes % (A) 5 %; Neutrophils # (A) 10.7 k/uL (1.3-7.7); Neutrophils % (A) 76 %; Platelet Count 217 k/uL (150-450); RBC 5.37 m/uL (4.30-5.90); RDW 11.9 % (11.5-15.5)
[2023-08-21 05:11] LABS: ALT 46 U/L (4-49); African American GFR (CKD) >90 (>60 ml/min/1.73 sqM); Amylase 52 U/L (30-110); Anion Gap 5 mmol/L; Blood Urea Nitrogen 12 mg/dL (9-20); Calcium 8.5 mg/dL (8.4-10.2); Carbon Dioxide 27 mmol/L (22-30); Chloride 105 mmol/L (98-107); Glucose 114 mg/dL (74-99); Lipase 51 U/L (23-300); Non-African American GFR(CKD) >90 (>60 ml/min/1.73 sqM); Sodium 137 mmol/L (137-145)
[2023-08-21 05:20] LABS: AST 41 U/L (17-59); Albumin 3.8 g/dL (3.5-5.0); Alkaline Phosphatase 77 U/L (38-126); Potassium 4.8 mmol/L (3.5-5.1); Total Bilirubin 1.6 mg/dL (0.2-1.3); Total Protein 6.7 g/dL (6.3-8.2)
[2023-08-21] MEDS: SODIUM CHLORIDE 0.9% 1,000 ML IV STA (06:38)
[2023-08-21] MEDS: ONDANSETRON 4 MG/2 ML VIAL IVP STA (06:40)
[2023-08-21] MEDS: FAMOTIDINE 20 MG/2 ML VIAL IV STA (06:42)
[2023-08-21] MEDS: PANTOPRAZOLE 40 MG/10 ML VIAL IVP STA (06:44)
[2023-08-21] MEDS: METOCLOPRAMIDE 5 MG/ML 2 ML VIAL IVP STA (07:40)
[2023-08-21 07:52] LABS: Appearance,Urine Clear (Clear); Bilirubin,Urine Negative (Negative); Blood,Urine Negative (Negative); Color,Urine Light Yellow; Glucose,Urine (UA) Negative (Negative); Ketones,Urine Negative (Negative); Leukocyte Esterase,Urine Negative (Negative); Nitrite,Urine Negative (Negative); PH, Urine 7.5 (5.0-8.0); Protein,Urine Negative (Negative); Specific Gravity,Urine 1.017 (1.001-1.035); Urobilinogen,Urine <2.0 mg/dL (<2.0)
[2023-08-21 07:55] VITALS: BP 112/82; PULSE 72; RESP 20
== END 2023-08-21 08:24 | disposition home or self-care (01) ==
LOC: EC 03:36
DX: J10.1 Influenza due to other identified influenza virus with other respiratory manifestations (principal); D72.829 Elevated white blood cell count, unspecified; K58.0 Irritable bowel syndrome with diarrhea; Z87.891 Personal history of nicotine dependence
CPT/HCPCS: 36415; 80053; 82150; 83690; 85025; 81003; 87636; 99284; 96374; 96375 ×3; 96361; J2765; J2405; J3490; C9113

== ENCOUNTER 2024-01-29 16:19 | Emergency (ER) | payer OTHER ==
[2024-01-29 16:46] VITALS: TEMP 98.3
--- NOTE | 2024-01-29 16:56 | ED ---
Dizziness HPI - General Source: patient, RN notes reviewed Mode of arrival: ambulatory Limitations: no limitations <Aggie Dumont - Last Filed: 01/29/24 16:54> - General Source: patient, RN notes reviewed, old records reviewed Mode of arrival: ambulatory Limitations: no limitations - History of Present Illness MD Complaint: dizziness, lightheadedness -: hour(s) Timing: sudden onset Description: sense of movement, "room spinning", lightheadedness History of Same: Yes History of Trauma: Yes Severity: mild Improves With: remaining still Worsens With: nothing Associated Symptoms: denies other symptoms <Randolph Valero - Last Filed: 02/12/24 19:07> - General Chief Complaint: Dizziness Stated Complaint: lightheaded-[facility] Time Seen by Provider: 01/29/24 16:30 - History of Present Illness Initial Comments: Quick [id number] male presents emergency department chief complaint of feelings of lightheadedness and headache. Patient states that around 1400 after he began to feel the and experience a headache when he took Motrin. Patient currently states he has a mild headache. Denies chest pain, shortness of breath, heart palpitations, dyspnea, fevers, nausea, cough. (Aggie Dumont) This is a 38-year-old male to the ER for evaluation of lightheadedness and headache. Patient with dizziness concern for elevated carbon monoxide (Randolph Valero) - Related Data Home Medications Medication Instructions Recorded Confirmed Acetaminophen Tab [Tylenol Tab] 1,000 mg PO Q6H PRN 05/02/22 05/02/22 Ibuprofen [Motrin] 800 mg PO Q8H PRN 05/02/22 05/02/22 Multivitamins, Thera [Multivitamin 1 tab PO DAILY 05/02/22 05/02/22 (formulary)] Omeprazole 20 mg PO DAILY PRN 05/02/22 05/02/22 Previous Rx's Medication Instructions Recorded Metoclopramide [Reglan] 10 mg PO Q6H PRN #30 tab 08/21/23 Ondansetron Odt [Zofran Odt] 4 mg PO Q8HR PRN #20 tab 08/21/23 Pantoprazole Sodium 40 mg PO DAILY 14 Days #14 tab 08/21/23 Allergies Allergy/AdvReac Type Severity Reaction Status Date / Time No Known Allergies Allergy Verified 08/21/23 04:06 Review of Systems ROS Other: All systems not noted in ROS Statement are negative. <Aggie Dumont - Last Filed: 01/29/24 16:54> ROS Other: All systems not noted in ROS Statement are negative. <Randolph Valero - Last Filed: 02/12/24 19:07> ROS Statement: Those systems with pertinent positive or pertinent negative responses have been documented in the HPI. Past Medical History Past Medical History: Osteoarthritis (OA) Additional Past Medical History / Comment(s): back pain, IBS, Degen disc disease, bilateral knee issues History of Any Multi-Drug Resistant Organisms: None Reported Past Surgical History: No Surgical Hx Reported Additional Past Surgical History / Comment(s): wisdom teeth 2007 Past Psychological History: Depression Smoking Status: Former smoker Past Alcohol Use History: Occasional Past Drug Use History: Marijuana <Aggie Dumont - Last Filed: 01/29/24 16:54> General Exam Limitations: no limitations <Aggie Dumont - Last Filed: 01/29/24 16:54> General appearance: alert, in no apparent distress Head exam: Present: atraumatic, normocephalic, normal inspection Eye exam: Present: normal appearance, PERRL, EOMI. Absent: scleral icterus, conjunctival injection, periorbital swelling ENT exam: Present: normal exam, mucous membranes moist Neck exam: Present: normal inspection. Absent: tenderness, meningismus, lymphadenopathy Respiratory exam: Present: normal lung sounds bilaterally. Absent: respiratory distress, wheezes, rales, rhonchi, stridor Cardiovascular Exam: Present: regular rate, normal rhythm, normal heart sounds. Absent: systolic murmur, diastolic murmur, rubs, gallop, clicks GI/Abdominal exam: Present: soft, normal bowel sounds. Absent: distended, tenderness, guarding, rebound, rigid Extremities exam: Present: normal inspection, full ROM, normal capillary refill. Absent: tenderness, pedal edema, joint swelling, calf tenderness Back exam: Present: normal inspection Neurological exam: Present: alert, oriented X3, CN II-XII intact Psychiatric exam: Present: normal affect, normal mood Skin exam: Present: warm, dry, intact, normal color. Absent: rash <Randolph Valero - Last Filed: 02/12/24 19:07> - General Exam Comments Initial Comments: Visual Physical Exam Vital signs reviewed General: Well-appearing, nontoxic, no acute distress. Head: Normocephalic, atraumatic Eyes: PERRLA, EOMI ENT: Airway patent Chest: Nonlabored breathing Skin: No visual rash, normal skin tone Neuro: Alert and oriented 3 Musculoskeletal: No gross abnormalities (Stieler,Aggie) Course <Randolph Valero - Last Filed: 02/12/24 19:07> Vital Signs 01/29/24 01/29/24 01/29/24 16:43 19:46 22:46 Temperature 98.3 F Pulse Rate 70 69 64 Respiratory 16 18 20 Rate Blood Pressure 112/72 117/91 122/94 O2 Sat by Pulse 98 98 99 Oximetry - Reevaluation(s) Reevaluation #1: 01/29/24 20:46 Medical records reviewed (Randolph Valero) Reevaluation #2: 01/29/24 20:46 Patient has no other symptoms noted here in the ER does not significant feel improved but has no new complaints (Randolph Valero) Reevaluation #3: 01/29/24 20:46 Patient informed of results questions answered (Randolph Valero) Reevaluation #4: 01/29/24 20:46 Was pt. sent in by a medical professional or institution (, PA, FOOD ORDER DELIVERY RUNNER, urgent care, hospital, or jail...) When possible be specific @ -no Did you speak to anyone other than the patient for history (EMS, parent, family, police, friend...)? What history was obtained from this source @ -no Did you review nursing and triage notes (agree or disagree)? Why? @ -agree Are old charts reviewed (outside hosp., previous admission, EMS record, old EKG, old radiological studies, urgent care reports/EKG's, jail records)? Report findings @ -yes Differential Diagnosis (chest pain, altered mental status, abdominal pain women, abdominal pain men, vaginal bleeding, weakness, fever, dyspnea, syncope, headache, dizziness, GI bleed, back pain, seizure, CVA, palpatations, mental health, musculoskeletal)? @ -prior EKG interpreted by me (3pts min.). @ -yes X-rays interpreted by me (1pt min.). @ -yes negative for acute disease CT interpreted by me (1pt min.). @ -no U/S interpreted by me (1pt. min.). @ -no What testing was considered but not performed or refused? (CT, X-rays, U/S, labs)? Why? @ -none What meds were considered but not given or refused? Why? @ -none Did you discuss the management of the patient with other professionals (professionals i.e. , PA, FOOD ORDER DELIVERY RUNNER, lab, RT, psych nurse, transition social worker, paper handler, teacher, optics technical officer, foster care case manager)? Give summary @ -no Was smoking cessation discussed for >3mins.? @ -no Was critical care preformed (if so, how long)? @ -no Were there social determinants of health that impacted care today? How? (Homelessness, low income, unemployed, alcoholism, drug addiction, transportation, low edu. Level, literacy, decrease access to med. care, shelter, rehab)? @ -none Was there de-escalation of care discussed even if they declined (Discuss DNR or withdrawal of care, Hospice)? DNR status @ -no What co-morbidities impacted this encounter? (DM, HTN, Smoking, COPD, CAD, Cancer, CVA, ARF, Chemo, Hep., AIDS, mental health diagnosis, sleep apnea, morbid obesity)? @ -none Was patient admitted / discharged? Hospital course, mention meds given and route, prescriptions, significant lab abnormalities, going to OR and other pertinent info. @ - 38 male to ER for evaluation patient can be discharged home no evidence of carbon monoxide exposure Undiagnosed new problem with uncertain prognosis? @ -no Drug Therapy requiring intensive monitoring for toxicity (Heparin, Nitro, Insulin, Cardizem)? @ -no Were any procedures done? @ -no Diagnosis/symptom? @ -Weakness Acute, or Chronic, or Acute on Chronic? @ -Acute Uncomplicated (without systemic symptoms) or Complicated (systemic symptoms)? @ -Complicated Side effects of treatment? @ -no Exacerbation, Progression, or Severe Exacerbation? @ -exacerbation Poses a threat to life or bodily function? How? (Chest pain, [place], [place], pneumonia, PE, COPD, DKA, ARF, appy, cholecystitis, CVA, Diverticulitis, Homicidal, Suicidal, threat to staff... and all critical care pts) @ -yes (Randolph Valero) Medical Decision Making <Aggie Dumont - Last Filed: 01/29/24 16:54> - Lab Data Result diagrams: 01/29/24 17:46 01/29/24 17:46 <Randolph Valero - Last Filed: 02/12/24 19:07> - Medical Decision Making I completed the quick note portion of this chart signed Aggie Dumont PA-C (Aggie Dumont) 38 male to ER for evaluation patient can be discharged home no evidence of carbon monoxide exposure (Randolph Valero) - Lab Data Lab Results 01/29/24 01/29/24 01/29/24 Range/Units 17:46 17:46 17:46 WBC 9.9 (3.8-10.6) k/uL RBC 4.62 (4.30-5.90) m/uL Hgb 14.8 (13.0-17.5) gm/dL Hct 42.5 (39.0-53.0) % MCV 91.9 (80.0-100.0) fL MCH 32.1 (25.0-35.0) pg MCHC 34.9 (31.0-37.0) g/dL RDW 12.4 (11.5-15.5) % Plt Count 191 (150-450) k/uL MPV 8.4 Neutrophils % 58 % Lymphocytes % 33 % Monocytes % 5 % Eosinophils % 3 % Basophils % 1 % Neutrophils # 5.7 (1.3-7.7) k/uL Lymphocytes # 3.2 (1.0-4.8) k/uL Monocytes # 0.5 (0-1.0) k/uL Eosinophils # 0.3 (0-0.7) k/uL Basophils # 0.1 (0-0.2) k/uL Carbon Monoxide, Quant (<10.0) % Sodium 134 L (137-145) mmol/L Potassium 3.8 (3.5-5.1) mmol/L Chloride 92 L (98-107) mmol/L Carbon Dioxide 27 (22-30) mmol/L Anion Gap 15 mmol/L BUN 14 (9-20) mg/dL Creatinine 0.72 (0.66-1.25) mg/dL Est GFR (CKD-EPI)AfAm >90 (>60 ml/min/1.73 sqM) Est GFR (CKD-EPI)NonAf >90 (>60 ml/min/1.73 sqM) Glucose 96 (74-99) mg/dL Calcium 9.7 (8.4-10.2) mg/dL Magnesium 1.8 (1.6-2.3) mg/dL Total Bilirubin 0.9 (0.2-1.3) mg/dL AST 20 (17-59) U/L ALT 19 (4-49) U/L Alkaline Phosphatase 68 (38-126) U/L Total Protein 6.5 (6.3-8.2) g/dL Albumin 4.2 (3.5-5.0) g/dL Influenza Type A (PCR) Not Detected (Not Detectd) Influenza Type B (PCR) Not Detected (Not Detectd) RSV (PCR) Not Detected (Not Detectd) SARS-CoV-2 (PCR) Not Detected (Not Detectd) 01/29/24 Range/Units 22:15 WBC (3.8-10.6) k/uL RBC (4.30-5.90) m/uL Hgb (13.0-17.5) gm/dL Hct (39.0-53.0) % MCV (80.0-100.0) fL MCH (25.0-35.0) pg MCHC (31.0-37.0) g/dL RDW (11.5-15.5) % Plt Count (150-450) k/uL MPV Neutrophils % % Lymphocytes % % Monocytes % % Eosinophils % % Basophils % % Neutrophils # (1.3-7.7) k/uL Lymphocytes # (1.0-4.8) k/uL Monocytes # (0-1.0) k/uL Eosinophils # (0-0.7) k/uL Basophils # (0-0.2) k/uL Carbon Monoxide, Quant 1.4 (<10.0) % Sodium (137-145) mmol/L Potassium (3.5-5.1) mmol/L Chloride (98-107) mmol/L Carbon Dioxide (22-30) mmol/L Anion Gap mmol/L BUN (9-20) mg/dL Creatinine (0.66-1.25) mg/dL Est GFR (CKD-EPI)AfAm (>60 ml/min/1.73 sqM) Est GFR (CKD-EPI)NonAf (>60 ml/min/1.73 sqM) Glucose (74-99) mg/dL Calcium (8.4-10.2) mg/dL Magnesium (1.6-2.3) mg/dL Total Bilirubin (0.2-1.3) mg/dL AST (17-59) U/L ALT (4-49) U/L Alkaline Phosphatase (38-126) U/L Total Protein (6.3-8.2) g/dL Albumin (3.5-5.0) g/dL Influenza Type A (PCR) (Not Detectd) Influenza Type B (PCR) (Not Detectd) RSV (PCR) (Not Detectd) SARS-CoV-2 (PCR) (Not Detectd) Disposition <Aggie Dumont - Last Filed: 01/29/24 16:54> Is patient prescribed a controlled substance at d/c from ED?: No Time of Disposition: 20:45 <Randolph Valero - Last Filed: 02/12/24 19:07> Clinical Impression: Dizziness Disposition: HOME SELF-CARE Condition: Fair Instructions (If sedation given, give patient instructions): Dizziness (ED) Referrals: [facility],Clinic [Primary Care Provider] - 1-2 days
[2024-01-29 17:51] LABS: Basophils # (A) 0.1 k/uL (0-0.2); Basophils % (A) 1 %; Eosinophils # (A) 0.3 k/uL (0-0.7); Eosinophils % (A) 3 %; HCT 42.5 % (39.0-53.0); HGB 14.8 gm/dL (13.0-17.5); Lymphocytes # (A) 3.2 k/uL (1.0-4.8); Lymphocytes % (A) 33 %; MCH 32.1 pg (25.0-35.0); MCHC 34.9 g/dL (31.0-37.0); MCV 91.9 fL (80.0-100.0); Mean Platelet Volume 8.4; Monocytes # (A) 0.5 k/uL (0-1.0); Monocytes % (A) 5 %; Neutrophils # (A) 5.7 k/uL (1.3-7.7); Neutrophils % (A) 58 %; Platelet Count 191 k/uL (150-450); RBC 4.62 m/uL (4.30-5.90); RDW 12.4 % (11.5-15.5); WBC 9.9 k/uL (3.8-10.6)
[2024-01-29 18:03] LABS: ALT 19 U/L (4-49); AST 20 U/L (17-59); African American GFR (CKD) >90 (>60 ml/min/1.73 sqM); Albumin 4.2 g/dL (3.5-5.0); Alkaline Phosphatase 68 U/L (38-126); Anion Gap 15 mmol/L; Blood Urea Nitrogen 14 mg/dL (9-20); Calcium 9.7 mg/dL (8.4-10.2); Carbon Dioxide 27 mmol/L (22-30); Chloride 92 mmol/L (98-107); Glucose 96 mg/dL (74-99); Magnesium 1.8 mg/dL (1.6-2.3); Non-African American GFR(CKD) >90 (>60 ml/min/1.73 sqM); Potassium 3.8 mmol/L (3.5-5.1); Sodium 134 mmol/L (137-145); Total Bilirubin 0.9 mg/dL (0.2-1.3); Total Protein 6.5 g/dL (6.3-8.2)
[2024-01-29 22:51] VITALS: BP 122/94; PULSE 64; RESP 20
== END 2024-01-29 22:48 | disposition home or self-care (01) ==
LOC: EC 16:19
DX: R42 Dizziness and giddiness
CPT/HCPCS: 36415; 80053; 82375; 83735; 85025; 87636; 93005; 99284

== ENCOUNTER 2024-02-25 13:12 | Emergency (ER) | payer OTHER ==
[2024-02-25 14:09] VITALS: TEMP 97.9
--- NOTE | 2024-02-25 14:59 | ED ---
Back Pain HPI - General Chief Complaint: Back Pain/Injury Stated Complaint: R Leg Numbness Time Seen by Provider: 02/25/24 14:55 Source: patient, RN notes reviewed - History of Present Illness Initial Comments: 38-year-old male presenting to the ER with chief complaint of low back pain x 1 day. States he was at work when he suddenly began to feel tingling in his lower back, then reports his entire right leg went numb. He continues to experience some tingling in the right leg. He does have chronic back pain and was diagnosed with degenerative disc disease and scoliosis. Denies chest pain or shortness of breath. Denies low-grade fevers, bowel or bladder incontinence, trauma or injury. - Related Data Home Medications Medication Instructions Recorded Confirmed Acetaminophen Tab [Tylenol Tab] 1,000 mg PO Q6H PRN 05/02/22 05/02/22 Ibuprofen [Motrin] 800 mg PO Q8H PRN 05/02/22 05/02/22 Multivitamins, Thera [Multivitamin 1 tab PO DAILY 05/02/22 05/02/22 (formulary)] Omeprazole 20 mg PO DAILY PRN 05/02/22 05/02/22 Previous Rx's Medication Instructions Recorded Metoclopramide [Reglan] 10 mg PO Q6H PRN #30 tab 08/21/23 Ondansetron Odt [Zofran Odt] 4 mg PO Q8HR PRN #20 tab 08/21/23 Pantoprazole Sodium 40 mg PO DAILY 14 Days #14 tab 08/21/23 predniSONE [Deltasone] 40 mg PO DAILY 5 Days #10 tab 02/25/24 Allergies Allergy/AdvReac Type Severity Reaction Status Date / Time No Known Allergies Allergy Verified 02/25/24 14:09 Review of Systems ROS Statement: Those systems with pertinent positive or pertinent negative responses have been documented in the HPI. ROS Other: All systems not noted in ROS Statement are negative. Past Medical History Past Medical History: Osteoarthritis (OA) Additional Past Medical History / Comment(s): back pain, IBS, Degen disc disease, bilateral knee issues, Scoliosis History of Any Multi-Drug Resistant Organisms: None Reported Past Surgical History: No Surgical Hx Reported Additional Past Surgical History / Comment(s): wisdom teeth 2007 Past Psychological History: Depression Smoking Status: Former smoker Past Alcohol Use History: Rare Past Drug Use History: None Reported General Exam General appearance: alert, in no apparent distress Head exam: Present: atraumatic, normocephalic, normal inspection Neck exam: Present: normal inspection. Absent: tenderness, meningismus, lymphadenopathy Respiratory exam: Present: normal lung sounds bilaterally. Absent: respiratory distress, wheezes, rales, rhonchi, stridor Cardiovascular Exam: Present: regular rate, normal rhythm, normal heart sounds. Absent: systolic murmur, diastolic murmur, rubs, gallop, clicks GI/Abdominal exam: Present: soft, normal bowel sounds. Absent: distended, tenderness, guarding, rebound, rigid Extremities exam: Present: normal inspection, full ROM, normal capillary refill. Absent: tenderness, pedal edema, joint swelling, calf tenderness Back exam: Present: normal inspection, full ROM (Back pain worse with flexion and extension), paraspinal tenderness (Bilateral paraspinal tenderness to lumbar portion of spine), other (Full strength and range of motion of bilateral hips, no saddle anesthesia, full sensation and DP pulses bilaterally). Absent: CVA tenderness (R), CVA tenderness (L), vertebral tenderness, rash noted Neurological exam: Present: alert, oriented X3 Psychiatric exam: Present: normal affect, normal mood Skin exam: Present: warm, dry, intact, normal color. Absent: rash Course Vital Signs 02/25/24 14:03 Temperature 97.9 F Pulse Rate 84 Respiratory 18 Rate Blood Pressure 113/77 O2 Sat by Pulse 98 Oximetry Medical Decision Making - Medical Decision Making Was pt. sent in by a medical professional or institution (, PA, GUN SYNCHRONIZER, urgent care, hospital, or snf...) When possible be specific @ -No Did you speak to anyone other than the patient for history (EMS, parent, family, police, friend...)? What history was obtained from this source @ -No Did you review nursing and triage notes (agree or disagree)? Why? @ -I reviewed and agree with nursing and triage notes Were old charts reviewed (outside hosp., previous admission, EMS record, old EKG, old radiological studies, urgent care reports/EKG's, snf records)? Report findings @ -No old charts were reviewed Differential Diagnosis (chest pain, altered mental status, abdominal pain women, abdominal pain men, vaginal bleeding, weakness, fever, dyspnea, syncope, headache, dizziness, GI bleed, back pain, seizure, CVA, palpatations, mental health, musculoskeletal)? @ -Differential Back Pain: Strain, zoster, cauda equina syndrome, epidural abscess, vertebral osteomyelitis, discitis, fracture, subluxation, disc herniation, DJD, spinal stenosis, dissection, AAA, pancreatitis, peptic ulcer disease, pyelonephritis, kidney stone, this is not meant to be an all-inclusive list. EKG interpreted by me (3pts min.). @ -None X-rays interpreted by me (1pt min.). @ -X-ray lumbar spine reveals mild facet arthritis at L5-S1 level, however no o ther abnormality CT interpreted by me (1pt min.). @ -None done U/S interpreted by me (1pt. min.). @ -None done What testing was considered but not performed or refused? (CT, X-rays, U/S, labs)? Why? @ -None What meds were considered but not given or refused? Why? @ -None Did you discuss the management of the patient with other professionals (professionals i.e. , PA, GUN SYNCHRONIZER, lab, RT, psych nurse, dialysis social worker, medical equipment technician, teacher, financial administration officer, disease case manager)? Give summary @ -No Was smoking cessation discussed for >3mins.? @ -No Was critical care preformed (if so, how long)? @ -No Were there social determinants of health that impacted care today? How? (Homelessness, low income, unemployed, alcoholism, drug addiction, transportation, low edu. Level, literacy, decrease access to med. care, group home, rehab)? @ -No Was there de-escalation of care discussed even if they declined (Discuss DNR or withdrawal of care, Hospice)? DNR status @ -No What co-morbidities impacted this encounter? (DM, HTN, Smoking, COPD, CAD, Cancer, CVA, ARF, Chemo, Hep., AIDS, mental health diagnosis, sleep apnea, morbid obesity)? @ -None Was patient admitted / discharged? Hospital course, mention meds given and route, prescriptions, significant lab abnormalities, going to OR and other pertinent info. @ -Discharge. This is a 38-year-old male with history of degenerative disc disease presenting with low back pain x 1 day with numbness down right leg. Denies trauma or injury. No red flag symptoms such as bowel or bladder incontinence or saddle anesthesia to indicate cauda equina. All signs are within acceptable limits. Neurovascularly intact, DP pulses strong and equal bilaterally. Patient was provided with steroid, anti-inflammatory, and muscle relaxer. X-ray reveals mild facet arthritis at L5-S1 level, no other abnormalities. Discussed findings with patient. Upon reevaluation, patient reports mild improvement of symptoms. Discussed diagnosis of sciatica. All questions answered at bedside. Return precautions discussed as well as supportive care. Discharged with steroids. Case was discussed with my ED attending Dr. Carter. Undiagnosed new problem with uncertain prognosis? @ -No Drug Therapy requiring intensive monitoring for toxicity (Heparin, Nitro, Insulin, Cardizem)? @ -No Were any procedures done? @ -No Diagnosis/symptom? @ -Sciatica Acute, or Chronic, or Acute on Chronic? @ -Acute Uncomplicated (without systemic symptoms) or Complicated (systemic symptoms)? @ -Uncomplicated Side effects of treatment? @ -No Exacerbation, Progression, or Severe Exacerbation? @ -No Poses a threat to life or bodily function? How? (Chest pain, [place], [place], pneumonia, PE, COPD, DKA, ARF, appy, cholecystitis, CVA, Diverticulitis, Homicidal, Suicidal, threat to staff... and all critical care pts) @ -No Disposition Clinical Impression: Sciatica of right side Disposition: HOME SELF-CARE Condition: Stable Instructions (If sedation given, give patient instructions): Sciatica (ED) Additional Instructions: Take steroids as directed for 5 days. Please return to the Emergency Department if symptoms worsen or any other concerns. Prescriptions: predniSONE [Deltasone] 40 mg PO DAILY 5 Days #10 tab Is patient prescribed a controlled substance at d/c from ED?: No Referrals: [facility] [Primary Care Provider] - 1-2 days Time of Disposition: 16:03
[2024-02-25] MEDS: KETOROLAC 15 MG/ML 1 ML VIAL IM STA (15:18)
[2024-02-25] MEDS: CYCLOBENZAPRINE 10 MG TAB PO STA (15:18)
[2024-02-25] MEDS: methylPREDNISolone SOD SUCCI 125 MG/2 ML VIAL IM ONE (15:20)
--- NOTE | 2024-02-25 15:45 | XR ---
Lumbar spine. HISTORY: Right lower extremity radiculopathy. COMPARISON: None. TECHNIQUE: 3 views of the lumbar spine were obtained. FINDINGS: The lumbar vertebral segments normal in height and alignment there is no fracture or subluxation. The disc spaces are well preserved. There is mild sclerosis or degenerative change of the L5-S1 facet. The visualized sacrum and SI joint s are normal. IMPRESSION: Mild facet arthritis at the L5-S1 level with no other significant abnormality seen. [facility], , 02/25/2024 3:43 PM
[2024-02-25 20:39] VITALS: BP 117/81; PULSE 70; RESP 16
== END 2024-02-25 16:30 | disposition home or self-care (01) ==
LOC: EC 13:12
CPT/HCPCS: 72100; 96372; 99283